=== PATIENT | male | born 1955 | race Caucasian/White ===

== ENCOUNTER → 2017-07-01 | Outpatient (CLI) | payer OTHER | LOC: GIMAGING 11:44 | PROVIDERS: ATTEND Family Medicine | DX: T84.398A Other mechanical complication of other bone devices, implants and grafts, initial encounter (principal); Z98.1 Arthrodesis status | CPT/HCPCS: 72100-PO ==

== ENCOUNTER 2017-07-24 16:08 | Inpatient (IN) | payer OTHER ==
--- NOTE | 2017-07-24 16:24 | EDPHY ---
H & P Time Seen by Provider: 07/24/17 16:18 HPI/ROS: CHIEF COMPLAINT: Found on the ground with a cut on his head HISTORY OF PRESENT ILLNESS: 61-year-old man was found on the ground outside his apartment with a cut on his head. Brought in by EMS and gets for getting the year. He complains only of a cut on the right side of his face just above his eyebrow. He says he lost his balance and fell down. Denies syncope or loss of consciousness. Denies headache or neck or back pain. REVIEW OF SYSTEMS: Eye: no change in vision or double vision ENT: no sore throat Cardiac: no chest pain or syncope Pulmonary: no cough or SOB Abdomen: no vomiting, diarrhea, abdominal pain Musculoskeletal: Chronic back pain, but no neck pain or extremity pain Skin: He has scratches on both forearms from his cat named "magic" Neuro: no headache Constitutional: no fever : no urinary symptoms A comprehensive 10 point review of systems is otherwise negative aside from elements mentioned in the history of present illness. PAST MEDICAL HISTORY: Chronic back pain, alcoholism, hypertension, rotator cuff surgery Social history: Per EMS there were empty alcohol bottles in his apartment but the patient denies alcohol. General Appearance: Alert and a little bit slow to respond to questions, cooperative. Eyes: No scleral icterus. Extraocular motion intact and pupils reactive. ENT, Mouth: Normal mucous membranes. 1 cm jagged laceration with the right eyebrow. No hemotympanum. Respiratory: Normal respiratory effort, breath sounds equal, lungs are clear to auscultation. Cardiovascular: Regular rate and rhythm. Gastrointestinal: Abdomen is soft and non tender. Neurological: Alert, face symmetric, normal motor and sensory in extremities. Can't remember the year but does follow commands appropriately with a little bit of delay. Skin: Right-sided facial laceration is noted above. Healed multiple forearm scratches on right and left without evidence of cellulitis. Musculoskeletal: No extremity or spinal tenderness. Psychiatric: Not agitated. Emergency Department course/MDM: Chem 8, wound care, CT head and cervical spine. 1704: Negative head and cervical spine per Anthony. 1811: I-STAT creatinine noted at 3.3, full chemistry panel pending. EKG pending. 1833: Patient is now more tremulous and getting more confused. His labs reviewed and he is in acute renal failure. His alcohol is 46 and he appears to be clinically in acute withdrawal. IV Ativan 2 mg, admission to Step-Down Unit. Smoking Status: Heavy smoker Constitutional: Initial Vital Signs Temperature (C) 36.5 C 07/24/17 16:08 Heart Rate 117 H 07/24/17 16:08 Respiratory Rate 16 07/24/17 16:08 Blood Pressure 108/78 07/24/17 16:08 O2 Sat (%) 93 07/24/17 16:08 O2 Delivery Mode Room Air Allergies/Adverse Reactions: No Known Allergies Allergy (Verified 07/24/15 17:10) Home Medications: Medication Instructions Recorded Gabapentin [Neurontin] 600 mg PO TID 01/05/15 ARIPiprazole [Aripiprazole] 5 mg PO DAILY 07/24/17 Baclofen [Baclofen 10 mg (*)] 10 mg PO TID 07/24/17 Nortriptyline HCl [Pamelor 25 mg 25 mg PO HS 07/24/17 (*)] Paroxetine HCl 20 mg PO DAILY 07/24/17 Potassium Chloride [Klor-Con 10] 10 meq PO DAILY 07/24/17 amLODIPine BESYLATE [Amlodipine 5 mg PO DAILY 07/24/17 Besylate] lamoTRIgine [LaMICtal] 25 mg PO DAILY 07/24/17 Medical Decision Making - Diagnostics EKG Interpretation: 12-lead EKG interpreted by me; official reading is in trace master. My interpretation is sinus tachycardia rate 112 with nonspecific IVCD. Imaging Results: Imaging Impressions Cervical Spine CT 07/24/17 16:23 Impression: 1. No acute fracture or soft tissue swelling. 2. Well seated ACDF extending from C5 to C7. 3. If the patient has persistent pain or neurologic deficits, consider cervical spine MRI. Findings discussed with Emergency Department physician, Dr. Greg Pinedo on July 24, [address] 07/24/17 16:23 Impression: 1. Minimal right supraorbital scalp swelling. No hematoma or acute skull or facial fracture. 2. No acute intracranial hemorrhage or contusion. 3. Mild atrophy and white matter disease. Findings discussed with Emergency Department physician, GREG PINEDO at 2017 17:05. Procedures: Procedure: Laceration repair. Verbal consent was obtained from the patient. The 1 cm laceration on the right eyebrow was anesthetized using 0.5% bupivacaine with epinephrine. The wound was irrigated with standard emergency department protocol, draped and explored. There were no deep structures involved. No foreign body found. The wound was repaired with 6 0 Prolene, and 5 0 Vicryl. The wound repair was complex. Excellent hemostasis was obtained. Wound care instructions were discussed and the patient was warned regarding scarring. The procedure was performed by myself. Differential Diagnosis: Differential diagnosis considered for head injury including but not limited to concussion, skull fracture, intraparenchymal contusion, subarachnoid, subdural and epidural hematoma. Consult/Admit Bed Type: [place] [address] Critical Care Time: Critical care time spent by me, Dr. Pinedo, exclusively with the care of this patient was 30 minutes, exclusive of PA or CREDIT ADMINISTRATION OFFICER time and exclusive of separate procedures. The organ system at risk was neurologic and metabolic and I ordered multiple diagnostics including cranial imaging, laboratory values, IV sedation with Ativan, IV hydration to stabilize the patient and prevent worsening of the patient's condition. - Data Points Laboratory Results: Laboratory Results 07/24/17 16:45 07/24/17 16:45 07/24/17 07/24/17 07/24/17 16:45 16:45 16:45 WBC 11.39 10^3/uL H 10^3/uL (3.80-9.50) RBC 4.61 10^6/uL 10^6/uL (4.40-6.38) Hgb 15.9 g/dL g/dL (13.7-17.5) POC Hgb Hct 45.9 % % (40.0-51.0) POC Hct MCV 99.6 fL fL (81.5-99.8) MCH 34.5 pg H pg (27.9-34.1) MCHC 34.6 g/dL g/dL (32.4-36.7) RDW 13.4 % % (11.5-15.2) Plt Count 118 10^3/uL L 10^3/uL (150-400) MPV 10.8 fL fL (8.7-11.7) Neut % (Auto) Not Reported Lymph % (Auto) Not Reported [place] % (Auto) Not Reported Eos % (Auto) Not Reported Baso % (Auto) Not Reported Nucleat RBC Rel Count 0.0 % % (0.0-0.2) Absolute Neuts (auto) Not Reported Absolute Lymphs (auto) Not Reported Absolute Monos (auto) Not Reported Absolute Eos (auto) Not Reported Absolute Basos (auto) Not Reported Absolute Nucleated RBC 0.00 10^3/uL 10^3/uL (0-0.01) Immature Gran % Not Reported Seg Neutrophils % 72 % % Band Neutrophils % 6 % % Lymphocytes % 9 % % Monocytes % 11 % % Myelocytes % 2 % % Immature Gran # Not Reported Absolute Seg Neuts 8.20 10^/uL H 10^/uL (1.70-6.50) Absolute Band Neuts 0.68 10^3/uL 10^3/uL (0.00-0.70) Absolute Lymphocytes 1.03 10^3/uL 10^3/uL (1.00-3.00) Absolute Monocytes 1.25 10^3/uL H 10^3/uL (0.30-0.80) Absolute Myelocytes 0.23 10^3/mL H 10^3/mL (0.00-0.00) RBC/WBC/PLT Morphology NORMAL (NORMAL) Platelet Estimate DECREASED L (ADEQ) Smear Review By Pending POC Sodium Sodium 134 mEq/L L mEq/L (135-145) POC Potassium Potassium 3.7 mEq/L mEq/L (3.5-5.2) POC Chloride Chloride 90 mEq/L L mEq/L (97-110) Carbon Dioxide 14 mEq/l L mEq/l (22-31) Anion Gap 30 mEq/L H mEq/L (8-16) POC BUN BUN 29 mg/dL H mg/dL (7-23) Creatinine 3.2 mg/dL H mg/dL (0.7-1.3) POC Creatinine Estimated GFR 20 Glucose 117 mg/dL H mg/dL (70-100) POC Glucose Calcium 10.6 mg/dL H mg/dL (8.5-10.4) Ethyl Alcohol 46 mg/dL H mg/dL (0-10) 07/24/17 16:42 WBC RBC Hgb POC Hgb 17.0 gm/dL gm/dL (13.7-17.5) Hct POC Hct 50 % % (40-51) MCV MCH MCHC RDW Plt Count MPV Neut % (Auto) Lymph % (Auto) [place] % (Auto) Eos % (Auto) Baso % (Auto) Nucleat RBC Rel Count Absolute Neuts (auto) Absolute Lymphs (auto) Absolute Monos (auto) Absolute Eos (auto) Absolute Basos (auto) Absolute Nucleated RBC Immature Gran % Seg Neutrophils % Band Neutrophils % Lymphocytes % Monocytes % Myelocytes % Immature Gran # Absolute Seg Neuts Absolute Band Neuts Absolute Lymphocytes Absolute Monocytes Absolute Myelocytes RBC/WBC/PLT Morphology Platelet Estimate Smear Review By POC Sodium 133 mEq/L L mEq/L (135-145) Sodium POC Potassium 3.4 mEq/L mEq/L (3.3-5.0) Potassium POC Chloride 92 mEq/L L mEq/L (97-110) Chloride Carbon Dioxide Anion Gap POC BUN 31 mg/dL H mg/dL (7-23) BUN Creatinine POC Creatinine 3.3 mg/dL H mg/dL (0.7-1.3) Estimated GFR Glucose POC Glucose 118 mg/dL H mg/dL (70-100) Calcium Ethyl Alcohol Medications Given: Discontinued Medications Sodium Chloride (Ns) 1,000 mls @ 0 mls/hr IV EDNOW ONE; Wide Open PRN Reason: Protocol Stop: 07/24/17 18:36 Last Admin: 07/24/17 18:37 Dose: 1,000 mls Sodium Chloride (Ns) 1,000 mls @ 0 mls/hr IV EDNOW ONE; Wide Open PRN Reason: Protocol Stop: 07/24/17 18:36 Last Admin: 07/24/17 18:38 Dose: 1,000 mls Lorazepam (Ativan Injection) 2 mg IVP EDNOW ONE Stop: 07/24/17 18:35 Last Admin: 07/24/17 18:37 Dose: 2 mg Point of Care Test Results: 07/24/17 16:42 POC Sodium 133 L POC Potassium 3.4 POC Chloride 92 L POC BUN 31 H POC Creatinine 3.3 H POC Glucose 118 H Departure - Departure Disposition: [facility] Inpatient Acute Clinical Impression: Alcohol withdrawal delirium Facial laceration Qualifiers: Encounter type: initial encounter Qualified Code(s): S01.81XA - Laceration without foreign body of other part of head, initial encounter Acute renal failure Qualifiers: Acute renal failure type: unspecified Qualified Code(s): N17.9 - Acute kidney failure, unspecified Condition: Good
--- NOTE | 2017-07-24 17:48 | ASMTCAGE ---
Date Signed: 07/24/2017 05:47 PM Electronically Signed By:Judit Centeno RN
--- NOTE | 2017-07-24 17:59 | ASMTCMCOM ---
CM Note CM Note Notes: Patient presents to ER per EMS after being found on the sidewalk outside his apartment, intoxicated. Patient is unable to answer questions. patient has a court appointed guardian "Star Ly"; Merrill Guillaume . Serena CHANG received HIPPA information from Angelica Robles, Director [employer] to whom I have spoken with . Per Angelica"s request: ER is to fax ER report, patient's current blood alcohol level, and any discharge instructions to her upon patient's discharge. . Patient may return to his apartment once he is medically cleared for discharge or discharge to the [facility] if appropriate. I have discussed situation with Serena CHANG and Dr. Horton. Faxe cover completed for Serena to fax info to angelica as requested. Date Signed: 07/24/2017 05:59 PM Electronically Signed By:Judit Centeno RN
[2017-07-24 18:17] LABS: PLATELET COUNT 118 10^3/uL (150-400)
[2017-07-24] MEDS ORDERED: LORazepam 2 MG/ML INJ IVP ONE (18:34)
[2017-07-24] MEDS ORDERED: LORazepam 2 MG/ML INJ ONE (18:34)
[2017-07-24] MEDS ORDERED: NS 1,000 ML IV ONE ×2 (18:35)
--- NOTE | 2017-07-24 18:43 | CPEKG ---
Heart Rate: 112 RR Interval: 536 P-R Interval: 164 QRSD Interval: 114 QT Interval: 340 QTC Interval: 464 P [place]: 46 QRS [place]: -38 T Wave [place]: 39 EKG Severity - ABNORMAL ECG - EKG Impression: SINUS TACHYCARDIA EKG Impression: NONSPECIFIC IVCD WITH LAD Electronically Signed By: Esvin Espinoza 24-Jul-2017 18:43:02
[2017-07-24] MEDS: D5W LR 1,000 ML IV SCH (22:24)
--- NOTE | 2017-07-24 23:12 | PDGENHP ---
History and Physical History and Physical: CC: Reportedly found on ground outside his apartment building HISTORY: I am unable to get any history from the patient is unresponsive at this time. From Dr. Esvin Espinoza in the ER I learned that the patient was brought by ambulance to the ER today here after being found on the ground but awake outside his apartment building. He seemed disoriented was brought to the ER. Here he reportedly was found have a head laceration, did not recall a specific injury, had no other specific complaints. He reported having lost his balance. At this time there is no other available history of acute illness or symptoms , how he has been doing recently, or any review of systems. Per report in the ER the patient started getting confused tremulous and agitated and it was felt he was possibly withdrawing from alcohol. He was given a dose of 2 mg of Ativan and since then has been unresponsive. The patient was transferred to the ICU or I am meeting him. Per the nurse upon transfer to the ICU the patient was not doing well with breathing, a nasal trumpet was placed and he is doing significantly better since then with some snoring and with good oxygenation on a couple L nasal cannula oxygen ROS: Unavailable due to unresponsiveness. PAST MEDICAL HISTORY: Intermittent alcoholism and sobriety, reports per paramedics that there was alcohol bottles in his apartment History of depression, and 1 admission here for suicidal ideation Chronic back pain with history of lumbar diskectomy fusion Kidney stones 1 prior episode of acute renal insufficiency during an acute illness that resolved FAMILY MEDICAL HISTORY: Unknown to me at this time with no useful information is chart SOCIAL HISTORY: Again unknown to me at this time but apparently has apartment, as best I know has never had any children and is single Known intermittent alcoholism in sobriety No prior indication of his record of street drug use MEDICATIONS: The patients list has been reconciled by our clinical pharmacist in the EMR. The list does not include any information on the last dose taken and it is unclear to me whether the patient was actually able to state whether he is taking these medicines currently or not. The list does include Pamelor, gabapentin, Lamictal, baclofen, aripiprazole, baclofen, paroxetine, amlodipine PHYSICAL EXAMINATION: Vital Signs: No fever; his respirations have been quite slow since he got the Ativan, however otherwise stable Emotionally Impaired Teacher: Sinus rhythm Examination: General: Comatose at this point Skin: warm, dry, good color, no rash or wounds other than a small laceration above the right eyebrow which has been closed in the ER and does not show signs of infection HEENT: normal other than the laceration as above, no tongue injury noted Neck: no mass or jvd Resps: relaxed Lungs: Very diminished but clear breath sounds Heart: regular, no murmur Abdomen: soft, nondistended, +BS, no mass Upper Extremities: normal Lower Extremities: no edema, warm No Bleeding or bruising Neurologic: The patient unable to participate in examination, there is no tremor, fasciculations or other abnormal motor activity, reflexes are unremarkable, pupils round equal and reactive IV site: looks normal LABORATORY DATA: Chemistry panel with significant metabolic acidosis with high anion gap, BUN is set in the upper 20s but creatinine is at 3.3 with a baseline of 0.6 in October of 2016, electrolytes okay CBC mildly elevated white blood cell count and mildly decreased platelets no anemia I have ordered serum ketones, so a serum salicylates and Tylenol level, and a drug screen all of which are pending I ordered an ammonia which is back at 9, liver panel I have ordered is pending RADIOLOGY STUDIES: CT scan of the head shows no intracranial abnormality and I reviewed these images and agree 12 LEAD EKG: Sinus rhythm with nothing acute on my reading ASSESSMENT: -acute encephalopathy, found on ground awake, now unarousable really unresponsive after 2 mg Ativan in the ER -acute metabolic acidosis -possible alcohol withdrawal acutely, patient appears to have been drinking and does have low level of alcohol on his blood now -past history of depression and suicidal ideation -unknown current outpatient prescribed medication usage -history of alcoholism with intermittent sobriety, unknown degree of current alcohol intake -found on ground at home tonight with small scalp laceration, circumstances beyond this unknown, consider possible closed head injury and/or concussive syndrome but unremarkable CT scan had Differential diagnosis for all the above is complicated. He was felt to have alcohol withdrawal in the ER and this may be the case but he has become completely unresponsive and this is persisting after single dose of 2 mg Ativan , much more significant response to that medicine that I would expect if all of this was alcohol withdrawal. Could consider possible seizure induced by alcohol withdrawal and/or noncompliance with his medicines which do include Lamictal and gabapentin at least as reconciled, though the accuracy of the medicine reconciliation and last time of any medication taken is unknown. He could be having alcoholic ketoacidosis at this point and ketone levels are pending. There is a possibility of thiamin deficiency and related effects. Also consider possibility of closed head injury with concussion. Finally as he has a history of depression and suicidal ideation would consider possible ingestion of substances otherwise including overdose of any of his medicines or otherwise. PLANS: -inpatient adission ICU -begin thiamin therapy at this point intravenously -hydration with D5 lactated ringers -await serum ketone level -await drug screen, Tylenol and salicylate levels -for now follow CIWA scores with Ativan dosing as needed though he is unresponsive entirely at this moment -follow electrolytes closely and replace as needed -cardiac monitoring -gastric ulcer and DVT prophylaxis -probably needs mental health evaluation once he becomes responsive again -currently NPO as he will not be able to swallow any medications -fall risk precautions I have reviewed the patient's case in detail with Dr. Esvin Espinoza I have reviewed the patient's past medical records as part of this assessment, including previous hospital admission records, physician notes, laboratory data
[2017-07-24] MEDS: THIAMINE HCL 500 MG in NS 250 ML IV SCH (23:57)
[2017-07-25] MEDS: LORazepam 2 MG/ML INJ IVP PRN ×8 (02:36→22:13)
[2017-07-25] MEDS: D5W LR 1,000 ML IV SCH ×2 (04:18→13:32)
[2017-07-25] MEDS: HEPARIN 5,000 UNIT/0.5 ML SYR SC SCH ×3 (05:25→21:25)
[2017-07-25] MEDS ORDERED: PROTOCOL MAGNESIUM 1 DOSE IV PRN (06:05)
[2017-07-25] MEDS ORDERED: PROTOCOL POTASSIUM 1 DOSE MISC PRN (06:05)
[2017-07-25] MEDS ORDERED: PROTOCOL CALCIUM 1 DOSE IV PRN (06:05)
[2017-07-25] MEDS ORDERED: PROTOCOL K PHOSPHATE 1 DOSE IV PRN (06:05)
[2017-07-25] MEDS ORDERED: POTASSIUM Cl (KCl) 100 ML IV SCH ×2 (06:30→14:45)
[2017-07-25] MEDS: POTASSIUM Cl (KCl) 10 MEQ in D5W 100 ML IV SCH ×4 (07:23→09:36)
[2017-07-25] MEDS: FAMOTIDINE 20 MG/NACL 50 ML IV SCH ×2 (08:15→20:22)
[2017-07-25] MEDS: THIAMINE HCL 500 MG in NS 250 ML IV SCH (08:47)
[2017-07-25] MEDS ORDERED: CALCIUM GLUCONATE 50 ML IV ONE (09:04)
[2017-07-25] MEDS ORDERED: CALCIUM GLUCONATE 1 GM in D5W 50 ML IV ONE (09:30)
--- NOTE | 2017-07-25 11:21 | PDMN ---
Medical Necessity Medical necessity: Pt meets IP criteria per MD; est los >2 mn for eval/tx of acute encephalopathy, metabolic acidosis, small scalp laceration & possible alcohol withdrawal; pt completely unresponsive, admit to ICU for further workup/ close monitoring, IVFs, IV thiamin/electrolytes, IV Ativan/CIWA protocol, therapies & Mental Health Evaluation; r/o seizure, alcoholic ketoacidosis, thiamin deficiency; closed head injury & possible overdose/suicidal ideation; hx alcoholism, depression, suicidal ideation; per H&P & order 07/24/17
[2017-07-25] MEDS ORDERED: NS 1,000 ML IV ONE (13:19)
--- NOTE | 2017-07-25 14:48 | HOSPPROG ---
Hospitalist Progress Note Assessment/Plan: 61 yo M w likely alcoholism found down w SUNIL, AGMA, alcohol withdrawal alcohol withdrawal: on scheduled librium at rel low dose as became apneic w benzos in ED follow on CIWA wide mediastinum: pa and lat cxr SUNIL: likely prerenal improving w IVF hypokalemia: being repleted w IV AGMA; likely startvation gap closed not hypotensive alcoholic hepatitis: low discriminant function follow proph: sc heparin dispo: SDU encephalopathy: likely alcohol and withdrawal related Subjective: case d/w dr mishra. cxr either ortated wor with enlarge mediastinum (interp by me) Objective: Vital Signs Temp Pulse Resp BP Pulse Ox 36.7 C 85 11 L 135/94 H 94 07/25/17 08:00 07/25/17 14:00 07/25/17 14:00 07/25/17 14:00 07/25/17 14:00 Laboratory Results 07/25/17 12:40 07/24/17 07/25/17 07/26/17 05:59 05:59 05:59 Intake Total 3488 Output Total 0 Balance 3488 - Physical Exam Constitutional: appears nourished, other (trying to get put of bed but not really following commands) Eyes: PERRL, anicteric sclera Ears, Nose, Mouth, Throat: moist mucous membranes, hearing normal Cardiovascular: regular rate and rhythym, no murmur, rub, or gallop, No systolic murmur, No diastolic murmur Respiratory: no respiratory distress, no rales or rhonchi Gastrointestinal: normoactive bowel sounds, soft, non-tender abdomen Genitourinary: no bladder fullness, No hughes in urethra Skin: warm, other (excoriations on L hand but not R) Musculoskeletal: No full muscle strength Neurologic: No AAOx3 Psychiatric: No interacting appropriately ICD10 Worksheet Patient Problems: Problems Problem Status Onset Acute renal failure Acute Alcohol withdrawal delirium Acute Facial laceration Acute Alcoholism Acute Arthrodesis status Acute Hydronephrosis with obstructing calculus Acute Low back pain Acute Lumbosacral stenosis Acute
[2017-07-25] MEDS: POTASSIUM Cl (KCl) 10 MEQ in NS 100 ML IV SCH ×2 (15:15→16:26)
--- NOTE | 2017-07-25 15:33 | GCON ---
[f rep st] CONSULTATION PULMONARY/CRITICAL CARE CONSULTATION. DATE OF CONSULTATION: 07/25/2017 REFERRING PHYSICIAN: Stevan Riley MD REASON FOR REFERRAL: Evaluation and management of acute kidney injury and sleep apnea. HISTORY: Mr. Caballero is a 61-year-old male who was brought into the emergency department yesterday after being found on the ground but awake outside of his apartment building in [facility]. He seemed disoriented and had a head laceration. He did not recall any specific injury. The patient became confused , tremulous and agitated, and was felt that he was withdrawing from alcohol. He was given 2 mg of Ativan and became unresponsive. He started to have observed apneas, so a nasal trumpet was placed. The patient has been unable to give a prior history of sleep apnea. With treatment with the nasal trumpet, his snoring and oxygenation improved. He was placed on BiPAP over night and that was stopped this morning. The patient currently is confused. He states that he does not have much appetite. He denies pain. PAST MEDICAL HISTORY: 1. Chronic back pain. 2. Kidney stones. 3. Alcoholism. 4. Depression. ALLERGIES: None. SOCIAL HISTORY: The patient apparently lives in an apartment and has children. He has a history of alcoholism. FAMILY HISTORY: Unremarkable. REVIEW OF SYSTEMS: Unobtainable due to the patient's confusion. PHYSICAL EXAMINATION: GENERAL: The patient is somnolent but arousable, and is able to answer simple questions, but does not give a reliable history. VITAL SIGNS: Blood pressure is 135/94 with a heart rate of 85. He is afebrile. Oxygen saturations are 94% on 3 L. HEENT: Normocephalic and atraumatic. No icterus. NECK: No adenopathy, trachea is midline. CHEST: Clear to auscultation. CARDIAC: Regular rate and rhythm without murmur. ABDOMEN: Soft , nontender. Bowel sounds present. EXTREMITIES: No clubbing, cyanosis, or edema. NEURO: The patient is somnolent but arousable. He is moving all 4 extremities symmetrically. He is oriented x1. The patient has a prominent tremor that improved after a dose of Ativan. LABORATORY: A potassium is 3.8, up from 3.1. Creatinine is 1.9, down from 3.2. BUN is 31, up from 29 at admission. An AST is 126, down from 162. Beta hydroxybutyrate is 0.95. An alcohol level was 46 yesterday. Salicylates and acetaminophen were negative. Hemoglobin is 15.9 with a white blood count of 11.4. A CT scan of the head shows mild atrophy. Images reviewed. A chest x-ray shows clear lungs. The aorta is tortuous and dilated. Images reviewed. ASSESSMENT: 1. Altered mental status. This is likely due to alcohol intoxication and now withdrawal, as the patient is starting to have some tremor. He has been responding to low-dose Ativan. 2. New is acute respiratory failure. The patient had significant respiratory depression with just a small-moderate dose of Ativan. This seems out of proportion to the amount of Ativan given. It is possible that he has other concomitant medications on board. 3. Obstructive sleep apnea. This was observed by nursing staff. It seemed to be exacerbated by medications, but he certainly is at risk for having untreated sleep apnea as an outpatient given his obesity and alcohol use. 4. Acute kidney injury. This is likely due to acute dehydration, although I would have expected a more elevated BUN if this was the sole cause. His creatinine has come down with 3 L of IV fluids. He has not peed yet, but has about 400 cc in his bladder. RECOMMENDATIONS: 1. Give another bolus of IV fluids. Recheck a bladder scan and if the patient is showing significant urinary retention, a straight cath will be placed. A urine sample will be sent for urinalysis as well as urine tox screen. 2. Continue low doses of IV Ativan. I will also write for a low dose of Librium to be taken once the patient is able to take p.o. 3. Use BiPAP p.r.n. sleep apnea. /[id number]/MODL MTDD
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
[2017-07-26] MEDS: DEXMEDETOMIDINE IN 0.9 % NACL 50 ML IV SCH ×5 (00:06→23:17)
[2017-07-26] MEDS: HEPARIN 5,000 UNIT/0.5 ML SYR SC SCH ×3 (05:48→20:49)
[2017-07-26] MEDS ORDERED: MAGNESIUM SULF 2 GM/WATER 50 ML IV ONE (07:27)
[2017-07-26] MEDS ORDERED: CALCIUM GLUCONATE 50 ML IV ONE (07:27)
[2017-07-26] MEDS ORDERED: CALCIUM GLUCONATE 1 GM in D5W 50 ML IV ONE (08:00)
[2017-07-26] MEDS: POTASSIUM Cl (KCl) 100 ML IV SCH ×2 (08:08→09:16)
[2017-07-26] MEDS: FAMOTIDINE 20 MG/NACL 50 ML IV SCH (08:10)
[2017-07-26] MEDS: THIAMINE HCL 500 MG in NS 250 ML IV SCH (08:23)
[2017-07-26] MEDS: NS W/ 20 KCl/L 1,000 ML IV SCH (10:45)
[2017-07-26] MEDS ORDERED: METOPROLOL TARTRATE 25 MG TAB PO SCH (11:15)
--- NOTE | 2017-07-26 11:29 | PDINTPN ---
Rug Cleaner Progress Note Assessment/Plan: Assessment/Plan: Alcohol withdrawal: On CIWA. Will continue with thiamin, p.r.n. Ativan, Precedex if needed. Will change Librium to 10 mg p.o. three times daily scheduled. Hypertension: Blood pressure is higher today. Will add metoprolol 25 p.o. Twice daily. Tremor: Coarse, all extremities. Looks more chronic than alcohol withdrawal, will observe. Altered mental status: Improving. CT head negative. Nonfocal. Likely all secondary to alcohol withdrawal. Hypokalemia, calcemia, magnesemia: On replacement protocols. Prophylaxis: On heparin, Pepcid. Continue care in the intensive care unit today on SDU status. Hold Precedex unless absolutely needed. Follow blood pressure, electrolytes. Continue CIWA protocol. Subjective: Denies pain, shortness of breath. Confused but becoming more oriented Objective: Vital Signs Temp Pulse Resp BP Pulse Ox 36.8 C 66 24 H 138/102 H 100 07/26/17 08:00 07/26/17 10:00 07/26/17 10:00 07/26/17 10:00 07/26/17 10:00 Laboratory Results 07/26/17 04:40 07/25/17 07/26/17 07/27/17 05:59 05:59 05:59 Intake Total 3488 4798 Output Total 0 465 Balance 3488 4333 Laboratory Tests 07/26/17 07/26/17 07/26/17 04:00 04:40 04:40 Sodium 134 L Potassium 3.7 Chloride 103 Carbon Dioxide 22 D Anion Gap 9 BUN 17 Creatinine 0.9 D Estimated GFR > 60 Glucose 120 H Calcium 8.3 L Ionized Calcium 1.09 L Phosphorus 2.6 D Magnesium 1.4 L CXR: Pending Physical Exam - Physical Exam General Appearance: other (Arousable, responsive. Small laceration over R eye with some related swelling) EENT: PERRL/EOMI, other (Nasal cannula at 2 L, 100%), No scleral icterus (R), No scleral icterus (L) Neck: normal inspection (No JVD) Respiratory: lungs clear (Anteriorly), decreased breath sounds (At the bases), other (Has cough with bronchial harshness/congestion), No rhonchi Cardiac/Chest: regular rate, rhythm Abdomen: normal bowel sounds, non-tender, soft Male Genitalia: other (Using urinal) Skin: normal color, warm/dry, other (Multiple scratches on his arms from his cat ) Extremities: No pedal edema Neuro/Psych: cognition abnormalities (Remains confused. Oriented to person, somewhat to hospital when given choices.), No no motor/sensory deficits (Moves all extremities equally but has a coarse tremor involving upper and lower extremities) ICD10 Worksheet Patient Problems: Problems Problem Status Onset Hydronephrosis with obstructing calculus Acute Low back pain Acute Lumbosacral stenosis Acute Arthrodesis status Acute Alcoholism Acute Facial laceration Acute Acute renal failure Acute Alcohol withdrawal delirium Acute
[2017-07-26] MEDS: IPRATROPIUM/ALBUTEROL 3 ML DEYVIAL IH SCH ×3 (12:16→20:47)
--- NOTE | 2017-07-26 13:03 | HOSPPROG ---
Hospitalist Progress Note Assessment/Plan: 61 yo M w likely alcoholism found down w SUNIL, AGMA, alcohol withdrawal alcohol withdrawal: on scheduled librium at rel low dose as became apneic w benzos in ED follow on CIWA wide mediastinum: repeat cxr this clinical presentation not c/w aortic dissection but needs this evaluated prior to dc SUNIL: likely prerenal improving w IVF hypokalemia: being repleted w IV AGMA; likely startvation gap closed not hypotensive alcoholic hepatitis: low discriminant function follow proph: sc heparin dispo: SDU encephalopathy: likely alcohol and withdrawal related improving Subjective: case d/w dr waldron. much more alert today- able to name teams playing basket ball Objective: Vital Signs Temp Pulse Resp BP Pulse Ox 36.8 C 79 20 118/83 H 100 07/26/17 08:00 07/26/17 12:00 07/26/17 12:00 07/26/17 12:00 07/26/17 12:00 Laboratory Results 07/26/17 04:40 07/25/17 07/26/17 07/27/17 05:59 05:59 05:59 Intake Total 3488 4798 Output Total 0 465 Balance 3488 4333 - Physical Exam Constitutional: no apparent distress, appears nourished Eyes: PERRL, anicteric sclera Ears, Nose, Mouth, Throat: moist mucous membranes, hearing normal Cardiovascular: regular rate and rhythym, no murmur, rub, or gallop Respiratory: no respiratory distress, no rales or rhonchi Gastrointestinal: normoactive bowel sounds, soft, non-tender abdomen Genitourinary: no bladder fullness, No hughes in urethra Skin: warm, normal color Musculoskeletal: No full muscle strength Neurologic: No AAOx3 ICD10 Worksheet Patient Problems: Problems Problem Status Onset Acute renal failure Acute Alcohol withdrawal delirium Acute Facial laceration Acute Alcoholism Acute Arthrodesis status Acute Hydronephrosis with obstructing calculus Acute Low back pain Acute Lumbosacral stenosis Acute
[2017-07-26] MEDS ORDERED: HALOPERIDOL LACT 5 MG/ML INJ IVP PRN (14:38)
[2017-07-26] MEDS: LORazepam 2 MG/ML INJ IVP PRN ×2 (14:50→19:25)
[2017-07-26] MEDS: FAMOTIDINE 20 MG TAB PO SCH (19:25)
[2017-07-26] MEDS ORDERED: POTASSIUM Cl (KCl) 100 ML IV SCH (19:30)
[2017-07-26] MEDS: POTASSIUM Cl (KCl) 10 MEQ in NS 100 ML IV SCH ×2 (20:19→20:52)
[2017-07-27] MEDS: LORazepam 2 MG/ML INJ IVP PRN ×9 (02:43→23:20)
[2017-07-27] MEDS: DEXMEDETOMIDINE IN 0.9 % NACL 50 ML IV SCH ×4 (03:42→22:25)
[2017-07-27] MEDS: NS W/ 20 KCl/L 1,000 ML IV SCH (03:42)
[2017-07-27] MEDS: HEPARIN 5,000 UNIT/0.5 ML SYR SC SCH ×3 (05:14→20:30)
[2017-07-27] MEDS: IPRATROPIUM/ALBUTEROL 3 ML DEYVIAL IH SCH ×2 (05:30→11:24)
[2017-07-27 05:37] LABS: PLATELET COUNT 83 10^3/uL (150-400)
[2017-07-27] MEDS: METOPROLOL TARTRATE 5 MG/5 ML INJ IVP PRN (06:23)
[2017-07-27] MEDS ORDERED: MAGNESIUM SULF 1 GM/DEXTROSE 100 ML IV ONE (08:21)
[2017-07-27] MEDS: THIAMINE HCL 100 MG TAB PO SCH (08:22)
[2017-07-27] MEDS: FAMOTIDINE 20 MG TAB PO SCH (08:22)
[2017-07-27] MEDS ORDERED: chlordiazePOXIDE 25 MG CAP PO ONE (11:42)
--- NOTE | 2017-07-27 11:42 | PDINTPN ---
Roll Builder Progress Note Assessment/Plan: Assessment: Alcohol withdrawal: On CIWA. Will continue with thiamin, p.r.n. Ativan; Precedex if needed. Will change Librium to 25 mg p.o. three times daily scheduled. Hypertension: Blood pressure is higher today. Will add metoprolol 25 p.o. Twice daily. Tremor: Coarse, all extremities. Looks more chronic than alcohol withdrawal, will observe. Altered mental status: Improving. CT head negative. Nonfocal. Likely all secondary to alcohol withdrawal. Hypokalemia, calcemia, magnesemia: On replacement protocols. Prophylaxis: On heparin, Pepcid. Plan: Continue care in the intensive care unit today on SDU status. Increase Librium. Hold Precedex unless absolutely needed. Follow blood pressure, electrolytes. Continue CIWA protocol. 07/27/17 11:39 Subjective: Somnolent but arousable. Agitated yesterday/striking nurse. Hungry. Objective: Vital Signs Temp Pulse Resp BP Pulse Ox 36.8 C 71 16 172/111 H 98 07/27/17 08:00 07/27/17 11:28 07/27/17 11:28 07/27/17 10:00 07/27/17 11:28 Laboratory Results 07/27/17 05:30 07/27/17 05:30 07/26/17 07/27/17 07/28/17 05:59 05:59 05:59 Intake Total 4798 3220.2 Output Total 465 1650 450 Balance 4333 1570.2 -450 Physical Exam - Physical Exam General Appearance: No alert EENT: normal ENT inspection, other (sutured laceration right forehead.) Neck: normal inspection Respiratory: chest non-tender, lungs clear, normal breath sounds Abdomen: normal bowel sounds, non-tender Skin: normal color, warm/dry Extremities: normal inspection Neuro/Psych: No alert, No oriented x 3, No motor weakness ICD10 Worksheet Patient Problems: Problems Problem Status Onset Acute renal failure Acute Alcohol withdrawal delirium Acute Facial laceration Acute Alcoholism Acute Arthrodesis status Acute Hydronephrosis with obstructing calculus Acute Low back pain Acute Lumbosacral stenosis Acute
--- NOTE | 2017-07-27 12:56 | HOSPPROG ---
Hospitalist Progress Note Assessment/Plan: 61 yo M w likely alcoholism found down w SUNIL, AGMA, alcohol withdrawal alcohol withdrawal: increase librium to 25 tid minimize precedex use prn valium and haldol wide mediastinum: repeat cxr this clinical presentation not c/w aortic dissection but needs this evaluated prior to dc 2014 had 4.[address] REPEAT ct IN am given above, will treat htn start lisinopril SUNIL: likely prerenal improving w IVF hypokalemia: being repleted w IV AGMA; likely startvation gap closed not hypotensive alcoholic hepatitis: low discriminant function follow proph: sc heparin dispo: SDU encephalopathy: likely alcohol and withdrawal related improving Subjective: case d/w dr mishra. agitated and hypertensive overnight requiring precedex Objective: Vital Signs Temp Pulse Resp BP Pulse Ox 36.6 C 70 33 H 183/122 H 97 07/27/17 12:00 07/27/17 12:00 07/27/17 12:00 07/27/17 12:00 07/27/17 12:00 Laboratory Results 07/27/17 05:30 07/27/17 12:00 07/26/17 07/27/17 07/28/17 05:59 05:59 05:59 Intake Total 4798 3220.2 Output Total 465 1650 450 Balance 4333 1570.2 -450 - Physical Exam Constitutional: no apparent distress, other Eyes: PERRL, anicteric sclera Ears, Nose, Mouth, Throat: moist mucous membranes, hearing normal Cardiovascular: regular rate and rhythym, no murmur, rub, or gallop (confused) Respiratory: no respiratory distress, no rales or rhonchi Gastrointestinal: normoactive bowel sounds, soft, non-tender abdomen Genitourinary: no bladder fullness, No hughes in urethra Skin: warm, normal color Musculoskeletal: no muscle tenderness, No full muscle strength Neurologic: No AAOx3 ICD10 Worksheet Patient Problems: Problems Problem Status Onset Acute renal failure Acute Alcohol withdrawal delirium Acute Facial laceration Acute Alcoholism Acute Arthrodesis status Acute Hydronephrosis with obstructing calculus Acute Low back pain Acute Lumbosacral stenosis Acute
[2017-07-27] MEDS: LORazepam 1 MG TAB PO PRN (13:05)
[2017-07-27] MEDS: LISINOPRIL 5 MG TAB PO SCH (13:12)
[2017-07-27] MEDS ORDERED: IPRATROPIUM/ALBUTEROL 3 ML DEYVIAL IH PRN (14:29)
[2017-07-27] MEDS: chlordiazePOXIDE 25 MG CAP PO SCH ×2 (17:21→20:31)
[2017-07-27] MEDS: NS 1,000 ML IV SCH (17:21)
[2017-07-27] MEDS: MELATONIN 3 MG TAB PO SCH (20:30)
[2017-07-28] MEDS: POTASSIUM Cl (KCl) 10 MEQ in NS 100 ML IV SCH ×4 (01:48→16:25)
[2017-07-28] MEDS: DEXMEDETOMIDINE IN 0.9 % NACL 50 ML IV SCH ×4 (01:48→23:59)
[2017-07-28] MEDS: LORazepam 2 MG/ML INJ IVP PRN ×2 (03:29→23:56)
[2017-07-28] MEDS: HEPARIN 5,000 UNIT/0.5 ML SYR SC SCH (06:24)
[2017-07-28] MEDS: LISINOPRIL 5 MG TAB PO SCH (09:59)
[2017-07-28] MEDS: THIAMINE HCL 100 MG TAB PO SCH (10:00)
[2017-07-28] MEDS: chlordiazePOXIDE 25 MG CAP PO SCH ×3 (10:00→20:20)
--- NOTE | 2017-07-28 10:06 | HOSPPROG ---
Hospitalist Progress Note Assessment/Plan: 61 yo M w likely alcoholism found down w SUNIL, AGMA, alcohol withdrawal alcohol withdrawal: increase librium to 25 tid minimize precedex use prn valium and haldol wide mediastinum: repeat cxr this clinical presentation not c/w aortic dissection but needs this evaluated prior to dc 2014 had 4.[address] today given above, will treat htn start lisinopril SUNIL: likely prerenal improving w IVF hypokalemia: being repleted w IV AGMA; likely startvation gap closed not hypotensive alcoholic hepatitis: low discriminant function follow proph: sc heparin dispo: SDU encephalopathy: likely alcohol and withdrawal related improving Subjective: agitated and violent overnight; precedex restarted. case d/w dr goss. discussed w outpt hospice case manager Objective: Vital Signs Temp Pulse Resp BP Pulse Ox 36.2 C 60 18 160/106 H 96 07/28/17 09:00 07/28/17 09:00 07/28/17 09:00 07/28/17 09:59 07/28/17 09:00 Laboratory Results 07/27/17 05:30 07/28/17 06:30 07/27/17 07/28/17 07/29/17 05:59 05:59 05:59 Intake Total 3220.2 2500 Output Total 1650 3550 775 Balance 1570.2 -1050 -775 - Physical Exam Constitutional: appears nourished, other (confused) Eyes: PERRL, anicteric sclera Ears, Nose, Mouth, Throat: moist mucous membranes, hearing normal Cardiovascular: regular rate and rhythym, no murmur, rub, or gallop Respiratory: no respiratory distress, no rales or rhonchi Gastrointestinal: normoactive bowel sounds, soft, non-tender abdomen Genitourinary: no bladder fullness, No hughes in urethra Skin: warm, normal color Musculoskeletal: full muscle strength Neurologic: other (encephalopathic, perseverative, oicking at blankets), No AAOx3 ICD10 Worksheet Patient Problems: Problems Problem Status Onset Acute renal failure Acute Alcohol withdrawal delirium Acute Facial laceration Acute Alcoholism Acute Arthrodesis status Acute Hydronephrosis with obstructing calculus Acute Low back pain Acute Lumbosacral stenosis Acute
[2017-07-28] MEDS: METOPROLOL TARTRATE 5 MG/5 ML INJ IVP PRN (10:50)
[2017-07-28] MEDS: NS 1,000 ML IV SCH (10:54)
[2017-07-28] MEDS ORDERED: CALCIUM GLUCONATE 50 ML IV ONE (11:12)
[2017-07-28] MEDS ORDERED: MAGNESIUM SULF 1 GM/DEXTROSE 100 ML IV ONE (11:12)
[2017-07-28] MEDS ORDERED: POTASSIUM Cl (KCl) 100 ML IV SCH (11:12)
[2017-07-28] MEDS ORDERED: CALCIUM GLUCONATE 1 GM in D5W 50 ML IV ONE (11:30)
[2017-07-28] MEDS ORDERED: NS IV ONE (12:00)
[2017-07-28] MEDS ORDERED: K PHOS IV ONE (12:00)
[2017-07-28] MEDS ORDERED: IOPAMIDOL (ISOVUE 370) 100 ML BTL IV ONE (12:58)
[2017-07-28] MEDS: ENOXAPARIN 40 MG/0.4 ML SYR SC SCH (13:27)
[2017-07-28] MEDS ORDERED: LISINOPRIL 5 MG TAB PO ONE (13:48)
--- NOTE | 2017-07-28 15:10 | ASMTCMCOM ---
CM Note CM Note Notes: Spoke to Angelica, patient's Stamping Machine Operator, who would like patient to go to a secured memory care unit. PT recommending SNF at this time. This CM will begin the referral and PASRR process. Date Signed: 07/28/2017 03:10 PM Electronically Signed By:Kacy Chen LCSW
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
--- NOTE | 2017-07-28 16:56 | ASMTCMCOM ---
CM Note CM Note Notes: PASRR sent to Coordinator. Referrals sent to 26 SNF's with Secured Units. Date Signed: 07/28/2017 04:56 PM Electronically Signed By:Kacy Chen LCSW
[2017-07-28] MEDS: LISINOPRIL 10 MG TAB PO SCH (20:20)
[2017-07-28] MEDS: MELATONIN 3 MG TAB PO SCH (20:21)
[2017-07-29] MEDS: DEXMEDETOMIDINE IN 0.9 % NACL 50 ML IV SCH (05:39)
[2017-07-29] MEDS ORDERED: CALCIUM GLUCONATE 50 ML IV ONE (06:49)
[2017-07-29] MEDS ORDERED: MAGNESIUM SULF 1 GM/DEXTROSE 100 ML IV ONE (06:49)
[2017-07-29] MEDS ORDERED: CALCIUM GLUCONATE 1 GM in D5W 50 ML IV ONE (07:00)
[2017-07-29] MEDS: LISINOPRIL 10 MG TAB PO SCH ×2 (08:15→19:58)
[2017-07-29] MEDS: THIAMINE HCL 100 MG TAB PO SCH (08:15)
[2017-07-29] MEDS: chlordiazePOXIDE 25 MG CAP PO SCH (08:15)
[2017-07-29] MEDS: ENOXAPARIN 40 MG/0.4 ML SYR SC SCH (08:16)
[2017-07-29 09:46] LABS: PLATELET COUNT 140 10^3/uL (150-400)
[2017-07-29] MEDS ORDERED: NS IV ONE (12:00)
[2017-07-29] MEDS ORDERED: K PHOS IV ONE (12:00)
[2017-07-29] MEDS: LORazepam 2 MG/ML INJ IVP PRN ×2 (12:28→13:23)
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
--- NOTE | 2017-07-29 14:14 | HOSPPROG ---
Hospitalist Progress Note Assessment/Plan: # acute encephalopathy - d/t etOH w/d - better today # etOH withdrawal - stop sched librium, cont CIWA # ascending thoracic aneurysm - 4.6cm; no evidence of dissection - needs follow-up - control htn - agree with lisinopril but needs monitoring given his SUNIL # mediastinal lipomatosis - accounts for most of mediastinal widening # SUNIL - resolved, pre-renal # AGMA - starvation ketosis # mild hepatitis - d/t etOH; low DF # hypoK - resolved # dvt ppx - lovenox Subjective: no acute events; complains of neck pain Objective: Vital Signs Temp Pulse Resp BP Pulse Ox 36.9 C 130 H 20 162/129 H 93 07/29/17 12:00 07/29/17 12:27 07/29/17 12:00 07/29/17 12:27 07/29/17 12:00 Laboratory Results 07/29/17 09:40 07/29/17 10:28 07/28/17 07/29/17 07/30/17 05:59 05:59 05:59 Intake Total 2500 3805 120 Output Total 3550 4475 Balance -1050 -670 120 chart reviewed CTA reviewed - Physical Exam Constitutional: chronically ill appearing, unkempt Cardiovascular: regular rate and rhythym, no murmur, rub, or gallop Respiratory: no respiratory distress, no rales or rhonchi Gastrointestinal: normoactive bowel sounds, soft, non-tender abdomen, no palpable masses ICD10 Worksheet Patient Problems: Problems Problem Status Onset Hydronephrosis with obstructing calculus Acute Low back pain Acute Lumbosacral stenosis Acute Arthrodesis status Acute Alcoholism Acute Facial laceration Acute Acute renal failure Acute Alcohol withdrawal delirium Acute
[2017-07-29] MEDS: NICOTINE 21 MG/24 HR PATCH TD SCH (14:23)
[2017-07-29] MEDS: LIDOCAINE 4%/MENTHOL 1% PATCH TD SCH ×2 (14:23→14:37)
--- NOTE | 2017-07-29 16:58 | ASMTCMCOM ---
CM Note CM Note Notes: Patient's Wardrobe Mistress, Catherine Bush, needed a letter for the courts. Dr. Barroso signed a letter. Catherine reports that the patient has a cat that he is concerned about. Right now the neighbor is caring for the cat. CM to follow up with SNF referrals listed. Date Signed: 07/29/2017 04:57 PM Electronically Signed By:Kacy Chen LCSW
[2017-07-29] MEDS: MELATONIN 3 MG TAB PO SCH (19:59)
[2017-07-29] MEDS: LORazepam 1 MG TAB PO PRN (19:59)
[2017-07-30] MEDS: PATCH REMOVAL 1 EA PATCH TD SCH ×2 (00:17→20:34)
[2017-07-30] MEDS: LORazepam 1 MG TAB PO PRN ×2 (00:58→08:12)
[2017-07-30 05:17] LABS: PLATELET COUNT 158 10^3/uL (150-400)
[2017-07-30] MEDS: LIDOCAINE 4%/MENTHOL 1% PATCH TD SCH (08:10)
[2017-07-30] MEDS: ENOXAPARIN 40 MG/0.4 ML SYR SC SCH (08:11)
[2017-07-30] MEDS: NICOTINE 21 MG/24 HR PATCH TD SCH (08:11)
[2017-07-30] MEDS: THIAMINE HCL 100 MG TAB PO SCH (08:12)
[2017-07-30] MEDS: LISINOPRIL 10 MG TAB PO SCH (08:12)
--- NOTE | 2017-07-30 09:38 | HOSPPROG ---
Hospitalist Progress Note Assessment/Plan: # acute encephalopathy - d/t etOH w/d - continues to improve # etOH withdrawal - improved, still in mild withdrawal - cont CIWA, thiamine # ascending thoracic aneurysm - 4.6cm (increased from 4.2cm in 2015); no evidence of dissection - will d/w CT surgery regarding ongoing surveillance - control htn - change lisinopril to labetalol today # mediastinal lipomatosis - accounts for most of mediastinal widening # SUNIL - resolved, pre-renal # AGMA - starvation ketosis # mild hepatitis - d/t etOH; resolved # hypoK - resolved # dvt ppx - lovenox Subjective: more mentally clear today; asking appropriate questions about aneurysm Objective: Vital Signs Temp Pulse Resp BP Pulse Ox 37.4 C 99 20 102/65 96 07/30/17 04:00 07/30/17 08:00 07/30/17 08:00 07/30/17 08:00 07/30/17 08:00 Laboratory Results 07/30/17 04:55 07/30/17 04:55 07/29/17 07/30/17 07/31/17 05:59 05:59 05:59 Intake Total 3805 2070 Output Total 4475 1250 Balance -[address] reviewed - Physical Exam Constitutional: unkempt Cardiovascular: regular rate and rhythym, no murmur, rub, or gallop Respiratory: no respiratory distress, no rales or rhonchi Gastrointestinal: soft, non-tender abdomen, no palpable masses ICD10 Worksheet Patient Problems: Problems Problem Status Onset Hydronephrosis with obstructing calculus Acute Low back pain Acute Lumbosacral stenosis Acute Arthrodesis status Acute Alcoholism Acute Facial laceration Acute Acute renal failure Acute Alcohol withdrawal delirium Acute
[2017-07-30] MEDS ORDERED: FLU VACC QS 2017-18 (3YR+)/PF 0.5 ML SYR (FLUARIX QUAD) IM ONE (12:21)
[2017-07-30] MEDS ORDERED: PNEUMOCOCCAL 0.5ML VACCINE VIAL IM ONE (12:21)
--- NOTE | 2017-07-30 13:25 | ASMTCMCOM ---
CM Note CM Note Notes: Spoke with Valarie Slater, Tool Mechanic for patient through [employer] ([phone]) program. She would like for us to email her the list of all the facilities turning the patient down ( since it is at 20 or so now) so we don't duplicate work. ([email or web address]). She will help with locating placement for the patient who is going to be difficult to place. [facility] to say if patient does not have a diagnosis of dementia they cannot take him for their locked unit. They need to know if he has a formal diagnosis of dementia, if his guardian is temporary or permanent, who signs for payment. They might be able to consider him once these questions are answered. Lorrie, [employer] [phone] is the contact. Patient is being transferred to the floor. CM will need to follow up there. Date Signed: 07/30/2017 01:25 PM Electronically Signed By:Linette Awan LCSW
--- NOTE | 2017-07-30 15:21 | ECHO ---
[email or web address] [address] Main: [phone] Fax: Transthoracic Echocardiogram Name: RODRICK WREN MR#: [id number] Study Date: 07/30/2017 Study Time: 11:54 AM Date of : 1955 Age: 61 year(s) Height: 175.3 cm (69 in.) Weight: 84.82 kg (187 lb.) BSA: 2.01 m2 Gender: Male Examination: Echo Indication: Ascending Aortic Aneurysm Image Quality: Technically Difficult Contrast: Requested by: Georgi Barroso BP: 111 mmHg/82 mmHg Heart Rate: Rhythm: Indication: Ascending Aortic Aneurysm Procedure Staff Journalism Intern: Felicia Kirkpatrick RDCS Reading Physician: Jasmyne Quezada Requesting Provider: Conclusions: Normal size left ventricle. No LV hypertrophy. Normal global systolic LV function. The ejection fraction is visually estimated to be 70 %. No regional wall motion abnormality. Normal RV function. Mildly dilated ascending aorta measuring 4.4 cm. Compared with 07/22/2014 overall similar findings Measurements: Chambers Valvular Assessment AV/MV Valvular Assessment TV/PV Normal Normal Normal Name Value Range Name Value Range Name Value Range Ao Gracie (2D): 3.5 cm (1.4 cm-2.6 AV meanP mmHg ( - ) cm) MV E Vmax: 0.72 m/s ( - ) IVSd (2D): 0.6 cm (0.6 cm-1.1 MV A Vmax: 1.09 m/s ( - ) cm) MV E/A: 0.66 ( - ) LVDd (2D): 4.2 cm (4.2 cm-5.9 cm) LVDs (2D): 2.1 cm (2.1 cm-4 cm) LVPWd (2D): 0.7 cm (0.6 cm-1 cm) LVEF (2D): 83 (>=54 %) Visual EF: 70 % Continued Measurements: Chambers Valvular Assessment AV/MV Name Value Name Value Patient: RODRICK WREN Study Date: 07/30/2017 Page 1 of 2 11:54 AM LADs: 2.2 cm MV E' Septal: 0.07 m/s MV E/E' Septal: 10.80 MV E/E' Lateral: 15.30 Additional Vessels Name Value Ao Ascendin.4 cm Findings: Left Ventricle: Normal size left ventricle. No LV hypertrophy. Normal global systolic LV function. The ejection fraction is visually estimated to be 70 %. No regional wall motion abnormality. Right Ventricle: Normal size right ventricle. Normal RV function. Left Atrium: The left atrium is normal in size. Right Atrium: The right atrium is normal in size. Mitral Valve: The mitral valve is normal in appearance and function. Aortic Valve: The aortic valve is normal in appearance and function. Tricuspid Valve: The tricuspid valve appears normal. Pulmonic Valve: Pulmonary valve not well visualized. Aorta: The aorta is normal. Mildly dilated ascending aorta measuring 4.4 cm. Pericardium: No pericardial effusion. There is pericardial fat. (No Signature Object) Patient: RODRICK WREN Study Date: 07/30/2017 Page 2 of 2 11:54 AM [id number]
[2017-07-30] MEDS: LORazepam 2 MG/ML INJ IVP PRN (15:24)
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
[2017-07-30] MEDS: ACETAMINOPHEN 500 MG TAB PO PRN (19:38)
[2017-07-30] MEDS ORDERED: ACETAMINOPHEN 500 MG TAB ONE (19:45)
[2017-07-30] MEDS: LABETALOL HCL 100 MG TAB PO SCH (20:32)
[2017-07-30] MEDS: MELATONIN 3 MG TAB PO SCH (20:32)
[2017-07-31] MEDS ORDERED: MAGNESIUM SULF 1 GM/DEXTROSE 100 ML IV ONE (07:25)
[2017-07-31] MEDS: ENOXAPARIN 40 MG/0.4 ML SYR SC SCH (08:15)
[2017-07-31] MEDS: ACETAMINOPHEN 500 MG TAB PO PRN (08:16)
[2017-07-31] MEDS: LABETALOL HCL 100 MG TAB PO SCH ×2 (08:16→22:01)
[2017-07-31] MEDS: THIAMINE HCL 100 MG TAB PO SCH (08:17)
[2017-07-31] MEDS: LORazepam 1 MG TAB PO PRN ×3 (08:17→17:51)
[2017-07-31] MEDS: NICOTINE 21 MG/24 HR PATCH TD SCH (08:18)
[2017-07-31] MEDS: LIDOCAINE 4%/MENTHOL 1% PATCH TD SCH (08:19)
[2017-07-31] MEDS ORDERED: CALCIUM CARBONATE 500 MG CHEWABLE TAB PO PRN (14:18)
[2017-07-31] MEDS: ARIPiprazole 5 MG TAB PO SCH (14:45)
--- NOTE | 2017-07-31 14:54 | HOSPPROG ---
Hospitalist Progress Note Assessment/Plan: # acute encephalopathy - d/t etOH w/d; now suspecting a more chronic component # etOH withdrawal - improved, should be resolving - cont CIWA, thiamine # ascending thoracic aneurysm - 4.6cm (increased from 4.2cm in 2015); no evidence of dissection - discussed with Dr De La Torre - he will see as an outpatient for ongoing surveillance - control htn - change lisinopril to labetalol today - echo reviewed - AV normal # depr - restarted prozac and abilify today # mediastinal lipomatosis - accounts for most of mediastinal widening # SUNIL - resolved, pre-renal # AGMA - starvation ketosis # mild hepatitis - d/t etOH; resolved # hypoK - resolved # forehead laceration - remove sutures in 1 week # dvt ppx - lovenox Objective: Vital Signs Temp Pulse Resp BP Pulse Ox 36.9 C 85 16 123/90 H 91 L 07/31/17 07:32 07/31/17 07:32 07/31/17 07:32 07/31/17 07:32 07/31/17 07:32 Laboratory Results 07/30/17 04:55 07/30/17 04:55 07/30/17 07/31/17 08/01/17 05:59 05:59 05:59 Intake Total 2070 400 Output Total 1250 375 Balance 820 25 ICD10 Worksheet Patient Problems: Problems Problem Status Onset Hydronephrosis with obstructing calculus Acute Low back pain Acute Lumbosacral stenosis Acute Arthrodesis status Acute Alcoholism Acute Facial laceration Acute Acute renal failure Acute Alcohol withdrawal delirium Acute
[2017-07-31] MEDS ORDERED: NON-FORMULARY NEW DRUG (Gabapentin [Neurontin] 600 MG) PO SCH (16:00)
[2017-07-31] MEDS: BACLOFEN 10 MG TAB PO SCH ×2 (16:16→22:00)
[2017-07-31] MEDS: GABAPENTIN 300 MG CAP PO SCH ×2 (16:17→22:00)
--- NOTE | 2017-07-31 17:22 | ASMTCMCOM ---
CM Note CM Note Notes: Today Ronnie worked with outpatient Water Purifier Angelica Travis to work on Pt's case and plan for discharge. Angelica states that technical administrative assistant and Care Navigators went to Court to petition for full guardianship today. Await decision. Recent paperwork declaring the Court order for placement of Pt. is in the hard chart. Pt. to be put on M1 Hold if tries to leave. host and hostess agrees and is aware. Pt. did become agitated today and host and hostess moved his bed closer to nurses station. Angelica also sent outpatient medical records to Ronnie today denoting Pt's hx. of alcohol related dementia. Fax-attached to [employer] and sent to [facility] who may have a bed soon per Angelica. Ronnie also contacted MD today because Pt. is not on all of his outpatient meds to include Abilify. Angelica warned that Pt. would grow increasingly agitated without the Abilify. Ronnie worked with MD and pharmacy to fix this situation. Pt. now on outpatient meds including Abilify. Completed PASRR from OB is in hard chart. SW to follow for d/c POC. Date Signed: 07/31/2017 05:21 PM Electronically Signed By:Marjan Freitas LCSW
[2017-07-31] MEDS: NICOTINE POLACRILEX 2 MG GUM B PRN (17:24)
[2017-07-31] MEDS: PATCH REMOVAL 1 EA PATCH TD SCH (20:32)
[2017-07-31] MEDS: NORTRIPTYLINE HCL 25 MG CAP PO SCH (22:00)
[2017-07-31] MEDS: MELATONIN 3 MG TAB PO SCH (22:00)
[2017-08-01] MEDS ORDERED: NON-FORMULARY NEW DRUG (Potassium Chloride [Klor-Con 10] 10 MEQ) PO SCH (09:00)
[2017-08-01] MEDS ORDERED: MAGNESIUM SULF 1 GM/DEXTROSE 100 ML IV ONE (09:01)
[2017-08-01] MEDS: ENOXAPARIN 40 MG/0.4 ML SYR SC SCH (09:16)
[2017-08-01] MEDS: GABAPENTIN 300 MG CAP PO SCH ×3 (09:17→21:02)
[2017-08-01] MEDS: NICOTINE 21 MG/24 HR PATCH TD SCH (09:17)
[2017-08-01] MEDS: lamoTRIgine 25 MG TAB PO SCH (09:17)
[2017-08-01] MEDS: LABETALOL HCL 100 MG TAB PO SCH ×2 (09:17→20:58)
[2017-08-01] MEDS: POTASSIUM CL 10 MEQ TAB PO SCH (09:17)
[2017-08-01] MEDS: ARIPiprazole 5 MG TAB PO SCH (09:17)
[2017-08-01] MEDS: BACLOFEN 10 MG TAB PO SCH ×3 (09:19→21:02)
[2017-08-01] MEDS: THIAMINE HCL 100 MG TAB PO SCH (09:19)
[2017-08-01] MEDS: PARoxetine HCL 20 MG TAB PO SCH (09:19)
[2017-08-01] MEDS: LIDOCAINE 4%/MENTHOL 1% PATCH TD SCH (09:19)
--- NOTE | 2017-08-01 14:48 | HOSPPROG ---
Hospitalist Progress Note Assessment/Plan: # acute encephalopathy - d/t etOH w/d - i suspect he is at baseline currently # etOH withdrawal - he is still tremulous but this may be chronic - stop ciwa today - thiamine # ascending thoracic aneurysm - 4.6cm (increased from 4.2cm in 2015); no evidence of dissection - discussed with Dr De La Torre - he will see as an outpatient for ongoing surveillance - control htn - cont labetalol - echo reviewed - AV normal # depr - restarted prozac and abilify today # mediastinal lipomatosis - accounts for most of mediastinal widening # SUNIL - resolved, pre-renal # AGMA - starvation ketosis # mild hepatitis - d/t etOH; resolved # hypoK - resolved # forehead laceration - remove sutures in 1 week # dvt ppx - lovenox # dispo - has a court appointed guardian - looking at placement Subjective: shaving; less depressed today Objective: Vital Signs Temp Pulse Resp BP Pulse Ox 36.8 C 82 18 107/76 92 08/01/17 07:19 08/01/17 09:17 08/01/17 07:19 08/01/17 09:17 08/01/17 07:19 Laboratory Results 07/30/17 04:55 08/01/17 05:20 07/31/17 08/01/17 08/02/17 05:59 05:59 05:59 Intake Total 400 Output Total 375 475 Balance 25 -475 - Physical Exam Constitutional: chronically ill appearing Cardiovascular: regular rate and rhythym, no murmur, rub, or gallop Respiratory: no respiratory distress, no rales or rhonchi Gastrointestinal: soft, non-tender abdomen, no palpable masses ICD10 Worksheet Patient Problems: Problems Problem Status Onset Hydronephrosis with obstructing calculus Acute Low back pain Acute Lumbosacral stenosis Acute Arthrodesis status Acute Alcoholism Acute Facial laceration Acute Acute renal failure Acute Alcohol withdrawal delirium Acute
--- NOTE | 2017-08-01 15:15 | ASMTCMCOM ---
CM Note CM Note Notes: Today SWer continued to work with Angelica Robles from [employer] on Pt's guardianship issues and discharge planning. Angelica informed SWer that Court did indeed establish a temporary legal guardian for Pt. Angelica will serve in that capacity: Angelica Robles The Assistant Chief Nursing Officer [facility]f[address] [facility] [address], [place] [address] [email or web address] is preferred: Work: Please see guardianship paperwork in the front of the hard chart. Paperwork also tubed to medical records. Today SWer also sent Angelica a list of nursing homes/SNFs where [facility] has already referred Pt. Angelica plans to call to f/u for placement. SWer sent updated outpatient note to all referred SNFs indicating alcoholic dementia diagnosis and also sent completed OBRA PASRR to all SNFs today via [employer]. [facility] have a bed open on Friday. Angelica to follow. Pt's GAL (stock shipper) to visit Pt. today at [facility] - Mr. Merrill Guillaume . Notably Merrill is not the appointed Court guardian, Angelica is. Pt's behavior has been reportedly calm today per beside RN. CM to follow for d/c POC. Date Signed: 08/01/2017 03:14 PM Electronically Signed By:Marjan Freitas LCSW
[2017-08-01] MEDS: MELATONIN 3 MG TAB PO SCH (21:01)
[2017-08-01] MEDS: NORTRIPTYLINE HCL 25 MG CAP PO SCH (21:01)
[2017-08-01] MEDS: PATCH REMOVAL 1 EA PATCH TD SCH (21:02)
[2017-08-01] MEDS: ACETAMINOPHEN 500 MG TAB PO PRN (21:10)
[2017-08-02] MEDS: LABETALOL HCL 100 MG TAB PO SCH ×2 (08:40→20:58)
[2017-08-02] MEDS: GABAPENTIN 300 MG CAP PO SCH ×3 (08:41→21:00)
[2017-08-02] MEDS: PARoxetine HCL 20 MG TAB PO SCH (08:41)
[2017-08-02] MEDS: lamoTRIgine 25 MG TAB PO SCH (08:41)
[2017-08-02] MEDS: THIAMINE HCL 100 MG TAB PO SCH (08:41)
[2017-08-02] MEDS: POTASSIUM CL 10 MEQ TAB PO SCH (08:41)
[2017-08-02] MEDS: ARIPiprazole 5 MG TAB PO SCH (08:41)
[2017-08-02] MEDS: BACLOFEN 10 MG TAB PO SCH ×3 (08:41→21:00)
[2017-08-02] MEDS: NICOTINE 21 MG/24 HR PATCH TD SCH (08:44)
[2017-08-02] MEDS: LIDOCAINE 4%/MENTHOL 1% PATCH TD SCH (08:47)
[2017-08-02] MEDS: ENOXAPARIN 40 MG/0.4 ML SYR SC SCH (08:51)
--- NOTE | 2017-08-02 11:47 | HOSPPROG ---
Hospitalist Progress Note Assessment/Plan: # acute encephalopathy - d/t etOH w/d - i suspect he is at baseline currently # etOH withdrawal - CIWA stopped - thiamine # ascending thoracic aneurysm - 4.6cm (increased from 4.2cm in 2015); no evidence of dissection - discussed with Dr De La Torre - he will see as an outpatient for ongoing surveillance - control htn - cont labetalol - may need to increase tomorrow - echo reviewed - AV normal # depr - restarted prozac and abilify # mediastinal lipomatosis - accounts for most of mediastinal widening # SUNIL - resolved, pre-renal # AGMA - starvation ketosis # mild hepatitis - d/t etOH; resolved # hypoK - resolved # forehead laceration - remove sutures tomorrow # dvt ppx - lovenox # dispo - has a court appointed guardian - looking at placement Subjective: feels better after shaving yesterday Objective: Vital Signs Temp Pulse Resp BP Pulse Ox 36.4 C 84 16 147/92 H 91 L 08/02/17 07:43 08/02/17 08:40 08/02/17 07:43 08/02/17 08:40 08/02/17 07:43 Laboratory Results 07/30/17 04:55 08/01/17 05:20 08/01/17 08/02/17 08/03/17 05:59 05:59 05:59 Intake Total 750 Output Total 975 Balance -225 - Physical Exam Constitutional: no apparent distress Cardiovascular: regular rate and rhythym, no murmur, rub, or gallop Respiratory: no respiratory distress, no rales or rhonchi Gastrointestinal: soft, non-tender abdomen, no palpable masses ICD10 Worksheet Patient Problems: Problems Problem Status Onset Hydronephrosis with obstructing calculus Acute Low back pain Acute Lumbosacral stenosis Acute Arthrodesis status Acute Alcoholism Acute Facial laceration Acute Acute renal failure Acute Alcohol withdrawal delirium Acute
[2017-08-02] MEDS: NICOTINE POLACRILEX 2 MG GUM B PRN (18:41)
[2017-08-02] MEDS: NORTRIPTYLINE HCL 25 MG CAP PO SCH (20:58)
[2017-08-02] MEDS: MELATONIN 3 MG TAB PO SCH (20:59)
[2017-08-02] MEDS: PATCH REMOVAL 1 EA PATCH TD SCH (22:49)
[2017-08-03] MEDS: ACETAMINOPHEN 500 MG TAB PO PRN (03:45)
[2017-08-03] MEDS: NICOTINE POLACRILEX 2 MG GUM B PRN ×2 (05:26→16:49)
[2017-08-03] MEDS: ENOXAPARIN 40 MG/0.4 ML SYR SC SCH (08:34)
[2017-08-03] MEDS: GABAPENTIN 300 MG CAP PO SCH ×3 (08:35→21:30)
[2017-08-03] MEDS: LABETALOL HCL 100 MG TAB PO SCH ×2 (08:35→21:26)
[2017-08-03] MEDS: ARIPiprazole 5 MG TAB PO SCH (08:35)
[2017-08-03] MEDS: THIAMINE HCL 100 MG TAB PO SCH (08:36)
[2017-08-03] MEDS: lamoTRIgine 25 MG TAB PO SCH (08:36)
[2017-08-03] MEDS: BACLOFEN 10 MG TAB PO SCH ×3 (08:36→21:30)
[2017-08-03] MEDS: POTASSIUM CL 10 MEQ TAB PO SCH (08:36)
[2017-08-03] MEDS: PARoxetine HCL 20 MG TAB PO SCH (08:36)
[2017-08-03] MEDS: LIDOCAINE 4%/MENTHOL 1% PATCH TD SCH (08:38)
[2017-08-03] MEDS: NICOTINE 21 MG/24 HR PATCH TD SCH (08:38)
[2017-08-03] MEDS ORDERED: MAGNESIUM SULF 1 GM/DEXTROSE 100 ML IV ONE (08:57)
--- NOTE | 2017-08-03 12:45 | HOSPPROG ---
Hospitalist Progress Note Assessment/Plan: # acute encephalopathy - d/t etOH w/d - not withdrawing anymore - i suspect he is at baseline currently # etOH withdrawal - CIWA stopped - thiamine # ascending thoracic aneurysm - 4.6cm (increased from 4.2cm in 2015); no evidence of dissection - discussed with Dr De La Torre - he will see as an outpatient for ongoing surveillance - control htn - cont labetalol - may need to increase tomorrow - echo reviewed - AV normal # depr - restarted prozac and abilify # mediastinal lipomatosis - accounts for most of mediastinal widening # SUNIL - resolved, pre-renal # AGMA - starvation ketosis # mild hepatitis - d/t etOH; resolved # hypoK - resolved # forehead laceration - sutures removed today # dvt ppx - lovenox # dispo - has a court appointed guardian - looking at placement; possibly tomorrow or Friday Subjective: states he feels well and is going for a walk later today Objective: Vital Signs Temp Pulse Resp BP Pulse Ox 36.6 C 85 18 122/94 H 90 L 08/03/17 07:51 08/03/17 08:35 08/03/17 07:51 08/03/17 08:35 08/03/17 07:51 Laboratory Results 07/30/17 04:55 08/01/17 05:20 08/02/17 08/03/17 08/04/17 05:59 05:59 05:59 Intake Total 750 500 Output Total 975 Balance -225 500 - Physical Exam Constitutional: no apparent distress, other (mildly tremulous) Eyes: anicteric sclera Ears, Nose, Mouth, Throat: hearing normal Cardiovascular: No edema Respiratory: no respiratory distress Gastrointestinal: No distension Genitourinary: No hughes in urethra Skin: warm Musculoskeletal: full muscle strength Neurologic: AAOx3 Psychiatric: interacting appropriately ICD10 Worksheet Patient Problems: Problems Problem Status Onset Hydronephrosis with obstructing calculus Acute Low back pain Acute Lumbosacral stenosis Acute Arthrodesis status Acute Alcoholism Acute Facial laceration Acute Acute renal failure Acute Alcohol withdrawal delirium Acute
[2017-08-03] MEDS: NORTRIPTYLINE HCL 25 MG CAP PO SCH (21:26)
[2017-08-03] MEDS: MELATONIN 3 MG TAB PO SCH (21:26)
[2017-08-03] MEDS: PATCH REMOVAL 1 EA PATCH TD SCH (21:33)
[2017-08-04] MEDS: NICOTINE POLACRILEX 2 MG GUM B PRN ×3 (07:35→20:23)
[2017-08-04] MEDS: ENOXAPARIN 40 MG/0.4 ML SYR SC SCH (08:15)
[2017-08-04] MEDS: GABAPENTIN 300 MG CAP PO SCH ×3 (08:15→21:44)
[2017-08-04] MEDS: LABETALOL HCL 100 MG TAB PO SCH ×2 (08:15→21:44)
[2017-08-04] MEDS: BACLOFEN 10 MG TAB PO SCH ×3 (08:15→21:44)
[2017-08-04] MEDS: ARIPiprazole 5 MG TAB PO SCH (08:15)
[2017-08-04] MEDS: NICOTINE 21 MG/24 HR PATCH TD SCH (08:16)
[2017-08-04] MEDS: lamoTRIgine 25 MG TAB PO SCH (08:16)
[2017-08-04] MEDS: PARoxetine HCL 20 MG TAB PO SCH (08:16)
[2017-08-04] MEDS: THIAMINE HCL 100 MG TAB PO SCH (08:16)
[2017-08-04] MEDS: POTASSIUM CL 10 MEQ TAB PO SCH (08:16)
[2017-08-04] MEDS: LIDOCAINE 4%/MENTHOL 1% PATCH TD SCH (08:17)
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
--- NOTE | 2017-08-04 12:44 | ASMTCMCOM ---
CM Note CM Note Notes: CM missed a call from Valarie, [employer]itor. ISATU called Valarie back and left her a msg. CM spoke w/ Angelica Robles. Angelica reports that she will have Valarie call the referrals that have been made. Angelica reports that during the time she has worked w/ Adien she has not seen him be violent, aggressive or angry. Aiden has been agreeable to seek ETOH treatment. Angelica reports that pt had Abilify added and it may have helped his mood. Angelica would like pt to get into a [place] community to stop the ETOH and help w/ dementia. Angelica is advocating for pt to have back surgery. CM to follow. Plan: TBD Date Signed: 08/04/2017 12:43 PM Electronically Signed By:KIKA Walton
--- NOTE | 2017-08-04 13:09 | ASMTCMCOM ---
CM Note CM Note Notes: CM spoke w/ Crystal at [facility]. Most of the referrals sent have been denied. New referrals made. Please see below. [facility] [phone] [facility] [phone] [facility] [phone] [facility] [phone] [facility] [phone] [facility] [phone] [facility] [phone] [place] [phone] [facility] [phone] [facility] [phone] [facility] [phone] [facility] [phone] [facility] [phone] [place] [phone] [facility] [phone] [facility] [phone] [place] [phone] [place] [phone] [place] [facility] [phone] [place] [phone] Date Signed: 08/04/2017 01:08 PM Electronically Signed By:KIKA Walton
[2017-08-04] MEDS: NORTRIPTYLINE HCL 25 MG CAP PO SCH (21:44)
[2017-08-04] MEDS: MELATONIN 3 MG TAB PO SCH (21:44)
[2017-08-04] MEDS: PATCH REMOVAL 1 EA PATCH TD SCH (21:45)
[2017-08-05] MEDS: ACETAMINOPHEN 500 MG TAB PO PRN (04:34)
[2017-08-05] MEDS: ARIPiprazole 5 MG TAB PO SCH (07:48)
[2017-08-05] MEDS: POTASSIUM CL 10 MEQ TAB PO SCH (07:48)
[2017-08-05] MEDS: ENOXAPARIN 40 MG/0.4 ML SYR SC SCH (07:48)
[2017-08-05] MEDS: lamoTRIgine 25 MG TAB PO SCH (07:48)
[2017-08-05] MEDS: PARoxetine HCL 20 MG TAB PO SCH (07:49)
[2017-08-05] MEDS: THIAMINE HCL 100 MG TAB PO SCH (07:49)
[2017-08-05] MEDS: GABAPENTIN 300 MG CAP PO SCH ×3 (07:49→21:35)
[2017-08-05] MEDS: NICOTINE POLACRILEX 2 MG GUM B PRN ×3 (07:49→20:08)
[2017-08-05] MEDS: BACLOFEN 10 MG TAB PO SCH ×3 (07:49→21:35)
[2017-08-05] MEDS: LABETALOL HCL 100 MG TAB PO SCH ×2 (07:49→21:35)
[2017-08-05] MEDS: LIDOCAINE 4%/MENTHOL 1% PATCH TD SCH (07:52)
[2017-08-05] MEDS: NICOTINE 21 MG/24 HR PATCH TD SCH (07:52)
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
--- NOTE | 2017-08-05 12:14 | ASMTCMCOM ---
CM Note CM Note Notes: Spoke with Angelica, patient's guardian to update and coordinate the search for placement today. [facility] are the only possibilities right now. Contacted Arabi Jenna and Jammie states her worker Celia will come to the hospital to do an admission evaluation today. (Celia's # [phone]) Spoke with Valarie, Athletic Coordinator and gave her Celia's information so she can coordinate to be here at the same time. Left a message for Maki with [facility] to call me. CM will follow. Date Signed: 08/05/2017 12:14 PM Electronically Signed By:Linette Awan LCSW
[2017-08-05] MEDS ORDERED: MAGNESIUM SULF 1 GM/DEXTROSE 100 ML IV ONE (15:03)
[2017-08-05] MEDS: MELATONIN 3 MG TAB PO SCH (21:35)
[2017-08-05] MEDS: PATCH REMOVAL 1 EA PATCH TD SCH (21:35)
[2017-08-05] MEDS: NORTRIPTYLINE HCL 25 MG CAP PO SCH (21:35)
[2017-08-06] MEDS: NICOTINE POLACRILEX 2 MG GUM B PRN ×3 (06:49→20:08)
[2017-08-06] MEDS: lamoTRIgine 25 MG TAB PO SCH (08:46)
[2017-08-06] MEDS: ARIPiprazole 5 MG TAB PO SCH (08:46)
[2017-08-06] MEDS: BACLOFEN 10 MG TAB PO SCH ×3 (08:46→21:10)
[2017-08-06] MEDS: THIAMINE HCL 100 MG TAB PO SCH (08:46)
[2017-08-06] MEDS: POTASSIUM CL 10 MEQ TAB PO SCH (08:46)
[2017-08-06] MEDS: LABETALOL HCL 100 MG TAB PO SCH ×2 (08:47→21:11)
[2017-08-06] MEDS: PARoxetine HCL 20 MG TAB PO SCH (08:49)
[2017-08-06] MEDS: GABAPENTIN 300 MG CAP PO SCH ×3 (08:49→21:10)
[2017-08-06] MEDS: LIDOCAINE 4%/MENTHOL 1% PATCH TD SCH (08:50)
[2017-08-06] MEDS: NICOTINE 21 MG/24 HR PATCH TD SCH (08:51)
[2017-08-06] MEDS: ENOXAPARIN 40 MG/0.4 ML SYR SC SCH (08:53)
[2017-08-06] MEDS ORDERED: MAGNESIUM SULF 1 GM/DEXTROSE 100 ML IV ONE (09:52)
[2017-08-06] MEDS: ACETAMINOPHEN 500 MG TAB PO PRN (10:59)
--- NOTE | 2017-08-06 16:33 | ASMTCMCOM ---
CM Note CM Note Notes: Valarie from [employer] left a message to say the asessment for today had been cancelled and will be tomorrow @ 10:30 AM. CM attempted to get back in touch with her and left a message. ISATU was informed late yesterday afternoon that [facility] was no longer interested. It is unclear if the assessment tomorrow is with [facility] or someone else. CM will follow. Date Signed: 08/06/2017 04:32 PM Electronically Signed By:Linette Awan LCSW
--- NOTE | 2017-08-06 16:49 | ASMTCMCOM ---
CM Note CM Note Notes: Valarie called back to confirm the assessment is with [facility] tomorrow at 10:30 AM. Angelica, who is patient's guardian wants Valarie at the assessments, so Valarie will check in with ISATU and then attend the assessment. ISATU will follow. Date Signed: 08/06/2017 04:49 PM Electronically Signed By:Linette Awan LCSW
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
[2017-08-06] MEDS: MELATONIN 3 MG TAB PO SCH (21:10)
[2017-08-06] MEDS: NORTRIPTYLINE HCL 25 MG CAP PO SCH (21:11)
[2017-08-06] MEDS: PATCH REMOVAL 1 EA PATCH TD SCH (21:11)
[2017-08-07 05:33] LABS: PLATELET COUNT 285 10^3/uL (150-400)
[2017-08-07] MEDS: NICOTINE POLACRILEX 2 MG GUM B PRN ×3 (08:28→20:05)
[2017-08-07] MEDS: LIDOCAINE 4%/MENTHOL 1% PATCH TD SCH (08:28)
[2017-08-07] MEDS: ENOXAPARIN 40 MG/0.4 ML SYR SC SCH (08:29)
[2017-08-07] MEDS: THIAMINE HCL 100 MG TAB PO SCH (08:29)
[2017-08-07] MEDS: GABAPENTIN 300 MG CAP PO SCH ×3 (08:29→21:06)
[2017-08-07] MEDS: LABETALOL HCL 100 MG TAB PO SCH ×2 (08:29→21:07)
[2017-08-07] MEDS: NICOTINE 21 MG/24 HR PATCH TD SCH (08:29)
[2017-08-07] MEDS: POTASSIUM CL 10 MEQ TAB PO SCH (08:29)
[2017-08-07] MEDS: PARoxetine HCL 20 MG TAB PO SCH (08:30)
[2017-08-07] MEDS: lamoTRIgine 25 MG TAB PO SCH (08:30)
[2017-08-07] MEDS: ARIPiprazole 5 MG TAB PO SCH (08:30)
[2017-08-07] MEDS: BACLOFEN 10 MG TAB PO SCH ×3 (08:30→21:07)
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
--- NOTE | 2017-08-07 15:01 | ASMTCMCOM ---
CM Note CM Note Notes: Today Valarie Slater from [employer] (she works with legal guardian Angelica Robles) came to [facility] to meet with Pt. and [facility] Liaison. [facility] denied Pt. to their facilities. Valarie plans to call Angie [facility]adez [facility] about their ability to take Pt. Pt. should be desirable for locked memory unit at this time due to having a guardian and weekly visits from [facility] [employer] staff. Ronnie sent new Allscripts referals to memory care units/locked units today (see Allscripts). Sent referral information to Valarie via email. [employer] staff to follow up with calls to SNFs for admission. CM to follow. Date Signed: 08/07/2017 03:00 PM Electronically Signed By:Marjan Freitas LCSW
[2017-08-07] MEDS: MELATONIN 3 MG TAB PO SCH (21:07)
[2017-08-07] MEDS: NORTRIPTYLINE HCL 25 MG CAP PO SCH (21:07)
[2017-08-07] MEDS: PATCH REMOVAL 1 EA PATCH TD SCH (21:26)
[2017-08-08] MEDS: GABAPENTIN 300 MG CAP PO SCH ×3 (08:19→20:56)
[2017-08-08] MEDS: ARIPiprazole 5 MG TAB PO SCH (08:19)
[2017-08-08] MEDS: THIAMINE HCL 100 MG TAB PO SCH (08:19)
[2017-08-08] MEDS: POTASSIUM CL 10 MEQ TAB PO SCH (08:20)
[2017-08-08] MEDS: LABETALOL HCL 100 MG TAB PO SCH ×2 (08:20→20:42)
[2017-08-08] MEDS: lamoTRIgine 25 MG TAB PO SCH (08:21)
[2017-08-08] MEDS: ENOXAPARIN 40 MG/0.4 ML SYR SC SCH (08:21)
[2017-08-08] MEDS: BACLOFEN 10 MG TAB PO SCH ×3 (08:21→20:56)
[2017-08-08] MEDS: PARoxetine HCL 20 MG TAB PO SCH (08:21)
[2017-08-08] MEDS: NICOTINE 21 MG/24 HR PATCH TD SCH (08:22)
[2017-08-08] MEDS: LIDOCAINE 4%/MENTHOL 1% PATCH TD SCH (08:23)
[2017-08-08] MEDS ORDERED: MAGNESIUM SULF 1 GM/DEXTROSE 100 ML IV ONE (09:57)
[2017-08-08] MEDS: ACETAMINOPHEN 500 MG TAB PO PRN (10:45)
[2017-08-08] MEDS: NICOTINE POLACRILEX 2 MG GUM B PRN ×3 (10:46→19:45)
--- NOTE | 2017-08-08 10:59 | HOSPPROG ---
Hospitalist Progress Note Assessment/Plan: 61y male to ED after being found down. 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 Doing logic puzzles. Very pleasant. No complaints. Objective: Vital Signs Temp Pulse Resp BP Pulse Ox 36.6 C 83 18 110/89 H 96 08/08/17 08:00 08/08/17 08:20 08/08/17 08:00 08/08/17 08:20 08/08/17 08:00 Laboratory Results 08/07/17 04:35 08/07/17 04:35 08/07/17 08/08/17 08/09/17 05:59 05:59 05:59 Intake Total 2050 800 Output Total 804 Balance 1246 800 - Physical Exam Constitutional: no apparent distress, appears nourished Eyes: PERRL, anicteric sclera Ears, Nose, Mouth, Throat: moist mucous membranes, hearing normal Cardiovascular: No JVD, No edema Respiratory: no respiratory distress, clear to auscultation Gastrointestinal: No tenderness, No ascites Skin: warm, normal color Musculoskeletal: full muscle strength, no joint effusions Neurologic: AAOx3 Psychiatric: interacting appropriately, not encephalopathic, thought process linear ICD10 Worksheet Patient Problems: Problems Problem Status Onset Hydronephrosis with obstructing calculus Acute Low back pain Acute Lumbosacral stenosis Acute Arthrodesis status Acute Alcoholism Acute Facial laceration Acute Acute renal failure Acute Alcohol withdrawal delirium Acute
--- NOTE | 2017-08-08 17:44 | ASMTCMCOM ---
CM Note CM Note Notes: Today Ronnie worked with [facility] [employer] staff, Sylvia on Pt's placement. Unfortunately, [facility] staff is coming a -end in finding a secure locked unit for Pt. After discussing case with CM [employer], we decided to pursue regular rehab placement due to Pt. having no negative behaviors or attempts to leave. Made new All[facility] referrals to [facility] and [facility]. [facility] for [place] at the [facility]. Karen Cottrell from [facility] to do on-site visit tomorrow, Friday, 08/09 to determine suitability for admission. Please note that guardian Angelica Robles must be invovled in all decisions about Pt's care to include his discharge placement - . We still may need to address possible Court order to place Pt. in a secure unit only. CM to follow for d/c POC. Date Signed: 08/08/2017 05:43 PM Electronically Signed By:Marjan Freitas LCSW
[2017-08-08] MEDS: NORTRIPTYLINE HCL 25 MG CAP PO SCH (20:45)
[2017-08-08] MEDS: MELATONIN 3 MG TAB PO SCH (20:45)
[2017-08-09] MEDS: PATCH REMOVAL 1 EA PATCH TD SCH ×2 (03:08→20:12)
[2017-08-09] MEDS: LABETALOL HCL 100 MG TAB PO SCH ×2 (08:39→20:08)
[2017-08-09] MEDS: POTASSIUM CL 10 MEQ TAB PO SCH (08:40)
[2017-08-09] MEDS: ARIPiprazole 5 MG TAB PO SCH (08:40)
[2017-08-09] MEDS: BACLOFEN 10 MG TAB PO SCH ×3 (08:40→23:02)
[2017-08-09] MEDS: THIAMINE HCL 100 MG TAB PO SCH (08:40)
[2017-08-09] MEDS: PARoxetine HCL 20 MG TAB PO SCH (08:40)
[2017-08-09] MEDS: lamoTRIgine 25 MG TAB PO SCH (08:40)
[2017-08-09] MEDS: NICOTINE 21 MG/24 HR PATCH TD SCH (08:41)
[2017-08-09] MEDS: GABAPENTIN 300 MG CAP PO SCH ×3 (08:41→23:01)
[2017-08-09] MEDS: LIDOCAINE 4%/MENTHOL 1% PATCH TD SCH (08:41)
[2017-08-09] MEDS: ENOXAPARIN 40 MG/0.4 ML SYR SC SCH (08:42)
--- NOTE | 2017-08-09 10:22 | PDIAF ---
- Diagnosis Diagnosis: FTT Code Status: Full Code - Medication Management Discharge Medications: Medications to Continue on Transfer Gabapentin [Neurontin] 600 mg PO TID 01/05/15 [Last Taken Unknown] ARIPiprazole [Aripiprazole] 5 mg PO DAILY 07/24/17 [Last Taken Unknown] Baclofen [Baclofen 10 mg (*)] 10 mg PO TID 07/24/17 [Last Taken Unknown] Nortriptyline HCl [Pamelor 25 mg (*)] 25 mg PO HS 07/24/17 [Last Taken Unknown] Paroxetine HCl 20 mg PO DAILY 07/24/17 [Last Taken Unknown] Potassium Chloride [Klor-Con 10] 10 meq PO DAILY 07/24/17 [Last Taken Unknown] lamoTRIgine [LaMICtal] 25 mg PO DAILY 07/24/17 [Last Taken Unknown] Acetaminophen [Tylenol ES 500 mg (*)] 1,000 mg PO Q6HRS PRN tab 08/09/17 [Last Taken Unknown] Calcium Carbonate [Tums 500MG (*)] 500 mg PO TID PRN tab.chew 08/09/17 [Last Taken Unknown] Labetalol HCl [Trandate 100 mg (*)] 100 mg PO BID tab 08/09/17 [Last Taken Unknown] Lidocaine 4%/Menthol 1% [Icy Hot Lidocaine/Menthol 4%/1% Patch (*)] 1 patch TD DAILY patch 08/09/17 [Last Taken Unknown] Melatonin [Melatonin 3 MG (*)] 1.5 mg PO HS tab 08/09/17 [Last Taken Unknown] Nicotine Polacrilex [Nicorette gum (*)] 2 mg B PRN PRN gum 08/09/17 [Last Taken Unknown] Nicotine [Nicoderm Cq 21 mg (*)] 21 mg TD DAILY patch 08/09/17 [Last Taken Unknown] Patch Removal 1 ea TD DAILY21 patch 08/09/17 [Last Taken Unknown] Thiamine HCl [Vitamin B-1] 100 mg PO DAILY tab 08/09/17 [Last Taken Unknown] Discharge Medications: Refer to the Discharge Home Medication list for PRN reason. PICC Care - Routine: N/A - Orders Services needed: Registered Nurse, Physical Therapy, Occupational Therapy Isolation Type: None Diet Recommendation: no restrictions on diet Diet Texture: Regular Texture Diet, Thin Liquids, Meds Whole w/Liquids - Follow Up Care Current Providers and Referrals: Gilberto Burrell MD [Primary Care Provider] - As per Instructions Jesse De La Torre DO [Doctor of Osteopathy] -
[2017-08-09] MEDS ORDERED: MAGNESIUM SULF 1 GM/DEXTROSE 100 ML IV ONE (11:12)
--- NOTE | 2017-08-09 11:36 | HOSPPROG ---
Hospitalist Progress Note Assessment/Plan: 61y male to ED after being found down. 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 Objective: Vital Signs Temp Pulse Resp BP Pulse Ox 36.5 C 64 16 147/104 H 95 08/09/17 07:19 08/09/17 07:19 08/09/17 07:19 08/09/17 07:19 08/09/17 07:19 Laboratory Results 08/07/17 04:35 08/07/17 04:35 08/08/17 08/09/17 08/10/17 05:59 05:59 05:59 Intake Total 800 400 Balance 800 400 - Physical Exam Constitutional: no apparent distress, appears nourished, not in pain Eyes: PERRL, anicteric sclera, EOMI Ears, Nose, Mouth, Throat: moist mucous membranes, hearing normal, ears appear normal Cardiovascular: No JVD, No tachycardia, No edema Respiratory: no respiratory distress, no rales or rhonchi, clear to auscultation Gastrointestinal: normoactive bowel sounds, No tenderness, No ascites Skin: warm, normal color, No mottled Musculoskeletal: full muscle strength, normal joint ROM, no joint effusions Neurologic: AAOx3 Psychiatric: interacting appropriately, not anxious, not encephalopathic ICD10 Worksheet Patient Problems: Problems Problem Status Onset Hydronephrosis with obstructing calculus Acute Low back pain Acute Lumbosacral stenosis Acute Arthrodesis status Acute Alcoholism Acute Facial laceration Acute Acute renal failure Acute Alcohol withdrawal delirium Acute
[2017-08-09] MEDS: NICOTINE POLACRILEX 2 MG GUM B PRN ×2 (13:21→20:10)
--- NOTE | 2017-08-09 14:05 | ASMTCMCOM ---
CM Note CM Note Notes: Karen was here to evaluate pt, he has been accepted but per Jennifer Robles (legal guardian [phone]) pt has a court order that states pt must be in a secure unit. ISATU w/f, Hemalatha Yuan notified. DC Plan: SNF Date Signed: 08/09/2017 02:04 PM Electronically Signed By:Abena Garner RN
[2017-08-09] MEDS: MELATONIN 3 MG TAB PO SCH (20:10)
[2017-08-09] MEDS: NORTRIPTYLINE HCL 25 MG CAP PO SCH (20:10)
[2017-08-10] MEDS: LABETALOL HCL 100 MG TAB PO SCH ×2 (08:36→20:26)
[2017-08-10] MEDS: POTASSIUM CL 10 MEQ TAB PO SCH (08:36)
[2017-08-10] MEDS: BACLOFEN 10 MG TAB PO SCH ×3 (08:37→20:26)
[2017-08-10] MEDS: GABAPENTIN 300 MG CAP PO SCH ×3 (08:37→20:25)
[2017-08-10] MEDS: lamoTRIgine 25 MG TAB PO SCH (08:37)
[2017-08-10] MEDS: THIAMINE HCL 100 MG TAB PO SCH (08:37)
[2017-08-10] MEDS: NICOTINE 21 MG/24 HR PATCH TD SCH (08:37)
[2017-08-10] MEDS: ARIPiprazole 5 MG TAB PO SCH (08:37)
[2017-08-10] MEDS: ENOXAPARIN 40 MG/0.4 ML SYR SC SCH (08:38)
[2017-08-10] MEDS: LIDOCAINE 4%/MENTHOL 1% PATCH TD SCH (08:38)
[2017-08-10] MEDS: PARoxetine HCL 20 MG TAB PO SCH (08:42)
--- NOTE | 2017-08-10 13:30 | HOSPPROG ---
Hospitalist Progress Note Assessment/Plan: 61y male to ED after being found down. 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 No issues. Objective: Vital Signs Temp Pulse Resp BP Pulse Ox 37.1 C 72 16 135/85 H 94 08/10/17 07:22 08/10/17 07:22 08/10/17 07:22 08/10/17 07:22 08/10/17 07:22 Laboratory Results 08/07/17 04:35 08/07/17 04:35 08/09/17 08/10/17 08/11/17 05:59 05:59 05:59 Intake Total 400 2350 Balance 400 2350 - Physical Exam Constitutional: no apparent distress, appears nourished Eyes: PERRL, anicteric sclera Ears, Nose, Mouth, Throat: moist mucous membranes, hearing normal Cardiovascular: No JVD, No edema Respiratory: no respiratory distress, reduced air movement Gastrointestinal: No tenderness, No ascites Skin: warm, normal color Musculoskeletal: no joint effusions, generalized weakness Neurologic: AAOx3 Psychiatric: interacting appropriately, not anxious, not encephalopathic ICD10 Worksheet Patient Problems: Problems Problem Status Onset Hydronephrosis with obstructing calculus Acute Low back pain Acute Lumbosacral stenosis Acute Arthrodesis status Acute Alcoholism Acute Facial laceration Acute Acute renal failure Acute Alcohol withdrawal delirium Acute
[2017-08-10] MEDS: NICOTINE POLACRILEX 2 MG GUM B PRN (14:23)
[2017-08-10] MEDS: MELATONIN 3 MG TAB PO SCH (20:26)
[2017-08-10] MEDS: NORTRIPTYLINE HCL 25 MG CAP PO SCH (20:26)
[2017-08-10] MEDS: PATCH REMOVAL 1 EA PATCH TD SCH (20:27)
[2017-08-11] MEDS: BACLOFEN 10 MG TAB PO SCH ×3 (08:44→20:26)
[2017-08-11] MEDS: PARoxetine HCL 20 MG TAB PO SCH (08:44)
[2017-08-11] MEDS: POTASSIUM CL 10 MEQ TAB PO SCH (08:44)
[2017-08-11] MEDS: lamoTRIgine 25 MG TAB PO SCH (08:44)
[2017-08-11] MEDS: LABETALOL HCL 100 MG TAB PO SCH ×2 (08:45→20:26)
[2017-08-11] MEDS: GABAPENTIN 300 MG CAP PO SCH ×3 (08:45→20:26)
[2017-08-11] MEDS: NICOTINE 21 MG/24 HR PATCH TD SCH (08:45)
[2017-08-11] MEDS: THIAMINE HCL 100 MG TAB PO SCH (08:45)
[2017-08-11] MEDS: ARIPiprazole 5 MG TAB PO SCH (08:45)
[2017-08-11] MEDS: ENOXAPARIN 40 MG/0.4 ML SYR SC SCH (08:45)
[2017-08-11] MEDS: LIDOCAINE 4%/MENTHOL 1% PATCH TD SCH (08:46)
--- NOTE | 2017-08-11 10:03 | ASMTCMCOM ---
CM Note CM Note Notes: Edwin Collier, assistant dean to Jennifer of [employer], called and requested we send patient's information to [facility]. They are saying patient has to have a locked unti per the court papers. [facility] has accepted patient but does not have a locked unit. Informed Edwin we had already sent a referral to [facility] on 07/28/17. Mary is saying she did not get the referral and wants it to be hand faxed because their All[employer] does not work well. Resent the referral by fax machine vs Allscripts. CM will follow. Date Signed: 08/11/2017 10:02 AM Electronically Signed By:Linette Awan LCSW
[2017-08-11] MEDS: NICOTINE POLACRILEX 2 MG GUM B PRN (11:15)
--- NOTE | 2017-08-11 13:08 | HOSPPROG ---
Hospitalist Progress Note Assessment/Plan: 61y male to ED after being found down. 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 Wants to leave hospital. Objective: Vital Signs Temp Pulse Resp BP Pulse Ox 37.1 C 84 16 124/85 H 94 08/11/17 08:48 08/11/17 08:48 08/11/17 08:48 08/11/17 08:48 08/11/17 08:48 Laboratory Results 08/07/17 04:35 08/07/17 04:35 08/10/17 08/11/17 08/12/17 05:59 05:59 05:59 Intake Total 2350 1999 Balance 2350 1999 - Physical Exam Constitutional: no apparent distress, appears nourished Eyes: PERRL, anicteric sclera Ears, Nose, Mouth, Throat: moist mucous membranes, hearing normal Cardiovascular: No JVD, No edema Respiratory: no respiratory distress, clear to auscultation Gastrointestinal: No tenderness, No ascites Skin: warm, normal color Musculoskeletal: normal joint ROM, no joint effusions Neurologic: AAOx3 Psychiatric: interacting appropriately, not anxious ICD10 Worksheet Patient Problems: Problems Problem Status Onset Hydronephrosis with obstructing calculus Acute Low back pain Acute Lumbosacral stenosis Acute Arthrodesis status Acute Alcoholism Acute Facial laceration Acute Acute renal failure Acute Alcohol withdrawal delirium Acute
--- NOTE | 2017-08-11 16:14 | ASMTCMCOM ---
ISATU Note ISATU Note Notes: Spoke with Karen from [facility] regarding patient. She visited with patient today and thinks he will do fine in their facility. He has to agree to wear a wander device that will lock outside doors as he gets close to them. Karen states if she doesn't get a decision today she will have to give the last male bed to someone else. I informed Edwin of this and he had the vp of digital marketing call me. Explained this to the vp of digital marketing (Merrill Guillaume) who states he is going to try to connect with Jennifer who is in court today. He was able to talk to Jennifer and they called Karen at [facility]. They have approved him going to [facility] and Karen set up transport for patient tomorrow 08-12-17 at 12:00 noon with [place].ISATU informed patient, nurse, and dr. LUNSFORD will follow. Date Signed: 08/11/2017 04:14 PM Electronically Signed By:Linette Awan LCSW
[2017-08-11] MEDS: MELATONIN 3 MG TAB PO SCH (20:26)
[2017-08-11] MEDS: NORTRIPTYLINE HCL 25 MG CAP PO SCH (20:26)
[2017-08-11] MEDS: PATCH REMOVAL 1 EA PATCH TD SCH (20:27)
--- NOTE | 2017-08-12 08:37 | HOSPPROG ---
Hospitalist Progress Note Assessment/Plan: 61y male to ED after being found down. 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 # SUNIL - resolved, pre-renal # AGMA - starvation ketosis resolved # mild hepatitis - d/t etOH; resolved # hypoK - resolved # forehead laceration - sutures removed # dvt ppx - lovenox # dispo - has a court appointed guardian "managed care specialist" - looking at placement #Plan: dc today Subjective: Aiden has no complaints, looking forward to dc Objective: Vital Signs Temp Pulse Resp BP Pulse Ox 36.4 C 71 14 133/95 H 92 08/12/17 08:00 08/12/17 08:00 08/12/17 08:00 08/12/17 08:00 08/12/17 08:00 Laboratory Results 08/07/17 04:35 08/07/17 04:35 08/11/17 08/12/17 08/13/17 05:59 05:59 05:59 Intake Total 1999 600 Balance 1999 600 - Physical Exam Constitutional: no apparent distress, appears nourished, not in pain Eyes: PERRL Ears, Nose, Mouth, Throat: hearing normal Respiratory: no respiratory distress Gastrointestinal: normoactive bowel sounds Skin: warm Musculoskeletal: full muscle strength Psychiatric: interacting appropriately, not anxious, not encephalopathic ICD10 Worksheet Patient Problems: Problems Problem Status Onset Acute renal failure Acute Alcohol withdrawal delirium Acute Facial laceration Acute Alcoholism Acute Arthrodesis status Acute Hydronephrosis with obstructing calculus Acute Low back pain Acute Lumbosacral stenosis Acute
[2017-08-12] MEDS: GABAPENTIN 300 MG CAP PO SCH ×3 (09:25→21:04)
[2017-08-12] MEDS: ARIPiprazole 5 MG TAB PO SCH (09:25)
[2017-08-12] MEDS: THIAMINE HCL 100 MG TAB PO SCH (09:25)
[2017-08-12] MEDS: BACLOFEN 10 MG TAB PO SCH ×3 (09:25→21:04)
[2017-08-12] MEDS: LIDOCAINE 4%/MENTHOL 1% PATCH TD SCH (09:26)
[2017-08-12] MEDS: NICOTINE 21 MG/24 HR PATCH TD SCH (09:26)
[2017-08-12] MEDS: PARoxetine HCL 20 MG TAB PO SCH (09:26)
[2017-08-12] MEDS: POTASSIUM CL 10 MEQ TAB PO SCH (09:26)
[2017-08-12] MEDS: lamoTRIgine 25 MG TAB PO SCH (09:26)
[2017-08-12] MEDS: LABETALOL HCL 100 MG TAB PO SCH ×2 (09:26→21:05)
[2017-08-12] MEDS: ENOXAPARIN 40 MG/0.4 ML SYR SC SCH (09:27)
--- NOTE | 2017-08-12 09:43 | PDIAF ---
- Diagnosis Diagnosis: FTT, acute encehalopathy, ascending thoracic aortic aneursym Code Status: Full Code - Medication Management Discharge Medications: Medications to Continue on Transfer Gabapentin [Neurontin] 600 mg PO TID 01/05/15 [Last Taken Unknown] ARIPiprazole [Aripiprazole] 5 mg PO DAILY 07/24/17 [Last Taken Unknown] Baclofen [Baclofen 10 mg (*)] 10 mg PO TID 07/24/17 [Last Taken Unknown] Nortriptyline HCl [Pamelor 25 mg (*)] 25 mg PO HS 07/24/17 [Last Taken Unknown] Paroxetine HCl 20 mg PO DAILY 07/24/17 [Last Taken Unknown] Potassium Chloride [Klor-Con 10] 10 meq PO DAILY 07/24/17 [Last Taken Unknown] lamoTRIgine [LaMICtal] 25 mg PO DAILY 07/24/17 [Last Taken Unknown] Acetaminophen [Tylenol ES 500 mg (*)] 1,000 mg PO Q6HRS PRN tab 08/09/17 [Last Taken Unknown] Calcium Carbonate [Tums 500MG (*)] 500 mg PO TID PRN tab.chew 08/09/17 [Last Taken Unknown] Labetalol HCl [Trandate 100 mg (*)] 100 mg PO BID tab 08/09/17 [Last Taken Unknown] Lidocaine 4%/Menthol 1% [Icy Hot Lidocaine/Menthol 4%/1% Patch (*)] 1 patch TD DAILY patch 08/09/17 [Last Taken Unknown] Melatonin [Melatonin 3 MG (*)] 1.5 mg PO HS tab 08/09/17 [Last Taken Unknown] Nicotine Polacrilex [Nicorette gum (*)] 2 mg B PRN PRN gum 08/09/17 [Last Taken Unknown] Nicotine [Nicoderm Cq 21 mg (*)] 21 mg TD DAILY patch 08/09/17 [Last Taken Unknown] Patch Removal 1 ea TD DAILY21 patch 08/09/17 [Last Taken Unknown] Thiamine HCl [Vitamin B-1] 100 mg PO DAILY tab 08/09/17 [Last Taken Unknown] Discharge Medications: Refer to the Discharge Home Medication list for PRN reason. PICC Care - Routine: N/A - Orders Services needed: Registered Nurse, Physical Therapy, Occupational Therapy Isolation Type: None Diet Recommendation: no restrictions on diet Diet Texture: Regular Texture Diet, Thin Liquids, Meds Whole w/Liquids Additional: patient needs f/u with Dr De La Torre for survellance of his aneurysm - Follow Up Care Current Providers and Referrals: Gilberto Burrell MD [Primary Care Provider] - As per Instructions Jesse De La Torre DO [Doctor of Osteopathy] -
--- NOTE | 2017-08-12 11:07 | GDS ---
[f rep st] DISCHARGE SUMMARY DISCHARGE DIAGNOSIS: 1. Acute encephalopathy. 2. Alcohol withdrawal. 3. Ascending thoracic aneurysm. 4. Depression. 5. Mediastinal lipomatosis. 6. Acute kidney injury. 7. Anion gap metabolic acidosis. 8. Mild hepatitis. 9. Hypo-potassium. 10. Forehead laceration. CONSULTATION: Dr. Niraj Cruz. Briefly, Mr. Caballero is a 61-year-old gentleman who was brought to the emergency department after being found on the ground awake outside his apartment in [facility]. He was disoriented, had a head laceration. He did not recall any specific injury. He became confused, tremulous and agitated and it was felt that he was withdrawing from alcohol. He was given Ativan and became unresponsive ,and had some observed apneas. Subsequently, a nasal trumpet was placed. He was placed on BiPAP in the intensive care unit. He improved during his stay. In addition, a CTA of the chest was performed due to a widened mediastinum. This showed no evidence of a mediastinal hematoma. He does have an ascending thoracic aortic aneurysm at 4.6 cm without dissection. He also was noted to have cardiomegaly with mild congestive heart failure, as well as generalized hepatic steatosis. He was given supportive care with his alcohol withdrawal. He improved throughout his stay. Today, he is on a med/surg floor. He is cooperative and alert. He will be discharged to a long-term care. HOSPITAL COURSE: 1. Acute encephalopathy. This is due to alcohol withdrawal. He is not withdrawing and he appears to be at baseline. 2. Alcohol withdrawal. He was treated with the CIWA protocol. 3. Ascending thoracic aneurysm. This needs to be monitored in the outpatient setting. He will see Dr. De La Torre. His aneurysm is 4.6 cm. It was noted to be 4.2 cm in 2015. 4. Depression. Resumed Prozac and Abilify. 5. Mediastinal lipomatosis. This accounts for most of his mediastinal widening. 6. Acute kidney injury, resolved. 7. Anion gap metabolic acidosis, resolved. 8. Mild hepatitis, resolved. 9. Hypokalemia, resolved. 10. Forehead laceration. Sutures removed. DISCHARGE CONDITION: Stable. Blood pressure is 133/95, heart rate is 71, respiratory rate is 14, O2 saturations on room air 92%, temperature 36.4 Celsius. MEDICATIONS AT DISCHARGE: Please see the EMR. DISCHARGE INSTRUCTIONS: 1. He will need further surveillance with Dr. De La Torre in the outpatient setting. 2. If he develops fever, chills, chest pain, shortness of breath, return to the ER. TIME SPENT: Greater than 30 minutes discharging and coordinating the patient's care. Addendum: patient was discharged on August 15, 2017 due to placement. No other changes to the above. Vital signs are stable at discharge. /[id number]/MODL MTDD
[2017-08-12] MEDS: NICOTINE POLACRILEX 2 MG GUM B PRN ×2 (15:22→21:06)
[2017-08-12] MEDS: ACETAMINOPHEN 500 MG TAB PO PRN (21:04)
[2017-08-12] MEDS: NORTRIPTYLINE HCL 25 MG CAP PO SCH (21:04)
[2017-08-12] MEDS: MELATONIN 3 MG TAB PO SCH (21:05)
[2017-08-12] MEDS: PATCH REMOVAL 1 EA PATCH TD SCH (21:07)
[2017-08-12] MEDS ORDERED: LIDOCAINE 4%/MENTHOL 1% PATCH TD SCH (22:30)
--- NOTE | 2017-08-13 08:56 | ASMTCMCOM ---
CM Note CM Note Notes: Discharge was cancelled by [facility] due to differences in expectations between them and [facility] [employer] [facility]. CM to continue search for accepting facility for patient. CM will follow. Date Signed: 08/13/2017 08:55 AM Electronically Signed By:Linette Awan LCSW
[2017-08-13] MEDS: ENOXAPARIN 40 MG/0.4 ML SYR SC SCH (08:59)
[2017-08-13] MEDS: LIDOCAINE 4%/MENTHOL 1% PATCH TD SCH (08:59)
[2017-08-13] MEDS: PARoxetine HCL 20 MG TAB PO SCH (09:00)
[2017-08-13] MEDS: LABETALOL HCL 100 MG TAB PO SCH ×2 (09:00→21:02)
[2017-08-13] MEDS: POTASSIUM CL 10 MEQ TAB PO SCH (09:00)
[2017-08-13] MEDS: GABAPENTIN 300 MG CAP PO SCH ×3 (09:00→21:03)
[2017-08-13] MEDS: ARIPiprazole 5 MG TAB PO SCH (09:00)
[2017-08-13] MEDS: lamoTRIgine 25 MG TAB PO SCH (09:00)
[2017-08-13] MEDS: NICOTINE 21 MG/24 HR PATCH TD SCH (09:02)
[2017-08-13] MEDS: BACLOFEN 10 MG TAB PO SCH ×3 (09:02→21:02)
[2017-08-13] MEDS: THIAMINE HCL 100 MG TAB PO SCH (09:03)
[2017-08-13] MEDS: PATCH REMOVAL 1 EA PATCH TD SCH (09:03)
[2017-08-13] MEDS: NICOTINE POLACRILEX 2 MG GUM B PRN ×2 (09:06→21:04)
[2017-08-13] MEDS: ACETAMINOPHEN 500 MG TAB PO PRN (09:10)
--- NOTE | 2017-08-13 09:40 | HOSPPROG ---
Hospitalist Progress Note Assessment/Plan: 61y male to ED after being found down. 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 Objective: Vital Signs Temp Pulse Resp BP Pulse Ox 36.4 C 66 18 120/91 H 94 08/13/17 07:42 08/13/17 09:00 08/13/17 07:42 08/13/17 07:42 08/13/17 07:42 Laboratory Results 08/07/17 04:35 08/07/17 04:35 08/12/17 08/13/17 08/14/17 05:59 05:59 05:59 Intake Total 600 960 Balance 600 960 - Physical Exam Constitutional: no apparent distress, appears nourished, not in pain Eyes: PERRL Ears, Nose, Mouth, Throat: hearing normal Respiratory: no respiratory distress Gastrointestinal: normoactive bowel sounds Skin: warm Musculoskeletal: full muscle strength Neurologic: AAOx3 Psychiatric: interacting appropriately ICD10 Worksheet Patient Problems: Problems Problem Status Onset Acute renal failure Acute Alcohol withdrawal delirium Acute Facial laceration Acute Alcoholism Acute Arthrodesis status Acute Hydronephrosis with obstructing calculus Acute Low back pain Acute Lumbosacral stenosis Acute
--- NOTE | 2017-08-13 18:24 | ASMTCMCOM ---
CM Note CM Note Notes: Spoke with Angelica (guardian) today. Angelica would like to see Aiden in a locked unit because of his addiction to alcohol. She says 'he just can't help himself'. She and her team are going to be working to find placement for Aiden there are three potential 'yes' facilities: [facility], [place], and [facility]. Angelica will call me with an update tomorrow. Date Signed: 08/13/2017 06:24 PM Electronically Signed By:Hemalatha Yuan RN
[2017-08-13] MEDS: MELATONIN 3 MG TAB PO SCH (21:02)
[2017-08-13] MEDS: NORTRIPTYLINE HCL 25 MG CAP PO SCH (21:02)
[2017-08-14] MEDS: PATCH REMOVAL 1 EA PATCH TD SCH ×3 (05:55→21:31)
[2017-08-14] MEDS: LIDOCAINE 4%/MENTHOL 1% PATCH TD SCH (08:46)
[2017-08-14] MEDS: GABAPENTIN 300 MG CAP PO SCH ×3 (08:49→21:27)
[2017-08-14] MEDS: THIAMINE HCL 100 MG TAB PO SCH (08:50)
[2017-08-14] MEDS: lamoTRIgine 25 MG TAB PO SCH (08:50)
[2017-08-14] MEDS: PARoxetine HCL 20 MG TAB PO SCH (08:50)
[2017-08-14] MEDS: BACLOFEN 10 MG TAB PO SCH ×3 (08:50→21:28)
[2017-08-14] MEDS: ARIPiprazole 5 MG TAB PO SCH (08:50)
[2017-08-14] MEDS: POTASSIUM CL 10 MEQ TAB PO SCH (08:50)
[2017-08-14] MEDS: LABETALOL HCL 100 MG TAB PO SCH ×2 (08:50→21:28)
[2017-08-14] MEDS: NICOTINE 21 MG/24 HR PATCH TD SCH (08:51)
[2017-08-14] MEDS: ENOXAPARIN 40 MG/0.4 ML SYR SC SCH (08:52)
[2017-08-14 15:00] VITALS: O2SAT 93
--- NOTE | 2017-08-14 16:09 | HOSPPROG ---
Hospitalist Progress Note Assessment/Plan: 61y male to ED after being found down. 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 Today is his birthday and he is very appreciative being in the hospital. Subjective: Aiden has no complaints. Objective: Vital Signs Temp Pulse Resp BP Pulse Ox 36.9 C 78 18 116/82 H 93 08/14/17 14:59 08/14/17 14:59 08/14/17 14:59 08/14/17 14:59 08/14/17 14:59 Laboratory Results 08/07/17 04:35 08/07/17 04:35 08/13/17 08/14/17 08/15/17 05:59 05:59 05:59 Intake Total 960 Balance 960 - Physical Exam Constitutional: no apparent distress, appears nourished, not in pain Eyes: PERRL Ears, Nose, Mouth, Throat: hearing normal Cardiovascular: regular rate and rhythym Respiratory: no respiratory distress Gastrointestinal: normoactive bowel sounds Skin: warm Musculoskeletal: full muscle strength Psychiatric: interacting appropriately ICD10 Worksheet Patient Problems: Problems Problem Status Onset Acute renal failure Acute Alcohol withdrawal delirium Acute Facial laceration Acute Alcoholism Acute Arthrodesis status Acute Hydronephrosis with obstructing calculus Acute Low back pain Acute Lumbosacral stenosis Acute
[2017-08-14] MEDS: NICOTINE POLACRILEX 2 MG GUM B PRN (16:35)
--- NOTE | 2017-08-14 17:30 | ASMTCMCOM ---
CM Note CM Note Notes: Today Edwin called from [facility]. Stated a liaison from [facility] would be coming to assess Pt. for admission. Ms. Felicia Lucas , [employer], came to do assessment. Felicia stated that Pt. was not appropriate for their particular secure unit due to his alcoholic dementia - they take mostly Alzheimers dementia and some Lewy Body dementia depending on behaviors. Felicia was open to assisting [facility] with other dementia placements, but Pt. not a good fit for them. Felicia communicated this over the phone to Valarie at [facility]. SW/ISATU following case for d/c POC with [facility] taking the lead for placement. Date Signed: 08/14/2017 05:29 PM Electronically Signed By:Marjan Freitas LCSW
[2017-08-14] MEDS: MELATONIN 3 MG TAB PO SCH (21:28)
[2017-08-14] MEDS: NORTRIPTYLINE HCL 25 MG CAP PO SCH (21:28)
[2017-08-15 06:57] VITALS: BP 105/81; PULSE 75; RESP 16; TEMP 98.2
[2017-08-15] MEDS: POTASSIUM CL 10 MEQ TAB PO SCH (07:24)
[2017-08-15] MEDS: PARoxetine HCL 20 MG TAB PO SCH (07:24)
[2017-08-15] MEDS: ARIPiprazole 5 MG TAB PO SCH (07:25)
[2017-08-15] MEDS: GABAPENTIN 300 MG CAP PO SCH (07:25)
[2017-08-15] MEDS: lamoTRIgine 25 MG TAB PO SCH (07:25)
[2017-08-15] MEDS: LABETALOL HCL 100 MG TAB PO SCH (07:25)
[2017-08-15] MEDS: THIAMINE HCL 100 MG TAB PO SCH (07:26)
[2017-08-15] MEDS: BACLOFEN 10 MG TAB PO SCH (07:26)
[2017-08-15] MEDS: ENOXAPARIN 40 MG/0.4 ML SYR SC SCH (07:26)
[2017-08-15] MEDS: LIDOCAINE 4%/MENTHOL 1% PATCH TD SCH ×2 (07:27→07:28)
[2017-08-15] MEDS: NICOTINE 21 MG/24 HR PATCH TD SCH (07:28)
[2017-08-15] MEDS: NICOTINE POLACRILEX 2 MG GUM B PRN (09:42)
[2017-08-15] MEDS: PATCH REMOVAL 1 EA PATCH TD SCH (09:42)
--- NOTE | 2017-08-15 11:54 | HOSPPROG ---
Hospitalist Progress Note Assessment/Plan: 61y male to ED after being found down. 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 Subjective: Aiden is in good spirits, has no complaints. Objective: Vital Signs Temp Pulse Resp BP Pulse Ox 36.8 C 75 16 105/81 H 93 08/15/17 06:56 08/15/17 06:56 08/15/17 06:56 08/15/17 06:56 08/15/17 06:56 Laboratory Results 08/07/17 04:35 08/07/17 04:35 - Physical Exam Constitutional: no apparent distress, appears nourished Eyes: PERRL Ears, Nose, Mouth, Throat: hearing normal Respiratory: no respiratory distress Skin: warm Musculoskeletal: full muscle strength Neurologic: AAOx3 Psychiatric: interacting appropriately, poor insight ICD10 Worksheet Patient Problems: Problems Problem Status Onset Acute renal failure Acute Alcohol withdrawal delirium Acute Facial laceration Acute Alcoholism Acute Arthrodesis status Acute Hydronephrosis with obstructing calculus Acute Low back pain Acute Lumbosacral stenosis Acute
--- NOTE | 2017-08-15 11:56 | PDIAF ---
- Diagnosis Diagnosis: FTT, acute encehalopathy, ascending thoracic aortic aneursym Code Status: Full Code - Medication Management Discharge Medications: Medications to Continue on Transfer Gabapentin [Neurontin] 600 mg PO TID 01/05/15 [Last Taken Unknown] ARIPiprazole [Aripiprazole] 5 mg PO DAILY 07/24/17 [Last Taken Unknown] Baclofen [Baclofen 10 mg (*)] 10 mg PO TID 07/24/17 [Last Taken Unknown] Nortriptyline HCl [Pamelor 25 mg (*)] 25 mg PO HS 07/24/17 [Last Taken Unknown] Paroxetine HCl 20 mg PO DAILY 07/24/17 [Last Taken Unknown] Potassium Chloride [Klor-Con 10] 10 meq PO DAILY 07/24/17 [Last Taken Unknown] lamoTRIgine [LaMICtal] 25 mg PO DAILY 07/24/17 [Last Taken Unknown] Acetaminophen [Tylenol ES 500 mg (*)] 1,000 mg PO Q6HRS PRN tab 08/09/17 [Last Taken Unknown] Calcium Carbonate [Tums 500MG (*)] 500 mg PO TID PRN tab.chew 08/09/17 [Last Taken Unknown] Labetalol HCl [Trandate 100 mg (*)] 100 mg PO BID tab 08/09/17 [Last Taken Unknown] Lidocaine 4%/Menthol 1% [Icy Hot Lidocaine/Menthol 4%/1% Patch (*)] 1 patch TD DAILY patch 08/09/17 [Last Taken Unknown] Melatonin [Melatonin 3 MG (*)] 1.5 mg PO HS tab 08/09/17 [Last Taken Unknown] Nicotine Polacrilex [Nicorette gum (*)] 2 mg B PRN PRN gum 08/09/17 [Last Taken Unknown] Nicotine [Nicoderm Cq 21 mg (*)] 21 mg TD DAILY patch 08/09/17 [Last Taken Unknown] Patch Removal 1 ea TD DAILY21 patch 08/09/17 [Last Taken Unknown] Thiamine HCl [Vitamin B-1] 100 mg PO DAILY tab 08/09/17 [Last Taken Unknown] Discharge Medications: Refer to the Discharge Home Medication list for PRN reason. PICC Care - Routine: N/A - Orders Services needed: Registered Nurse, Physical Therapy, Occupational Therapy Isolation Type: None Diet Recommendation: no restrictions on diet Diet Texture: Regular Texture Diet, Thin Liquids, Meds Whole w/Liquids Additional: patient needs f/u with Dr De La Torre for survellance of his aneurysm. Also, needs f/u with his neursurgeon in regards to his back. - Follow Up Care Current Providers and Referrals: Gilberto Burrell MD [Primary Care Provider] - As per Instructions Jesse De La Torre DO [Doctor of Osteopathy] -
--- NOTE | 2017-08-15 15:04 | ASMTLACE ---
ANDRAE Length of stay for Answers: 14 days or more current admission Acuity / Level of Answers: Yes Care: Did the patient have an inpatient admission? Comorbidities - select Answers: Opioid dependence all that apply / Chronic pain # of Emergency department Answers: 1-2 visits in the last 6 months Social determinants Answers: History of substance abuse (ETOH, street drugs, prescription drugs, etc.) Mental health diagnosis (anxiety, depression, pers onality disorders, etc.) Lack of community resources and/or lack of social support (no pcp, lives alone, transportation, viji d) Score: 25 Date Signed: 08/15/2017 03:03 PM Electronically Signed By:Marjan Freitas LCSW
--- NOTE | 2017-08-15 15:09 | ASMTCMCOM ---
CM Note CM Note Notes: Today Pt. discharged to [facility] - placement found by guardian Angelica Robles and Director of Case Management Hemalatha Yuan. [facility] states they are not putting Pt. in a secure unit. Ronnie coordinated with contact there, Rima. Ronnie faxed d/c paperwork via a hard copy to [phone]. RN prepared Pt. who left without incident. RN gave report. [facility] picked Pt. up around 14:30. D/c to [facility] parts counterman care facility. Date Signed: 08/15/2017 03:09 PM Electronically Signed By:Marjan Freitas LCSW
--- NOTE | 2017-08-15 15:12 | ASDISCHSUM ---
Discharge Information Plan Status:SNF Medically Cleared to Leave: Discharge Date:08/15/2017 02:53 PM CM D/C Disposition:Half-Way Facility ADT D/C Disposition:Half-Way Facility Projected Discharge Date:08/09/2017 11:00 AM Transportation at D/C:ALS/BLS Discharge Delay Reason: Follow-Up Date:08/09/2017 11:00 AM Discharge Slot: Final Diagnosis:ETOH W/D, Renal Failure Placement Information Referral Type:*Senior Living/SNF Referral ID:[id number] [facility] Address 1:[address] [place] [address] Address 2: City:[place] Selection Factors: State:[place] Referral Type:*Senior Living/SNF Referral ID:[id number] Provider Name: Address 1: Phone Number: Address 2: Fax Number: City: Selection Factors: State: Patient Contact Information Contact Name:KIM Relationship: Address: Home Phone: Work Phone: City: Alternate Phone: [facility] Code: Email: Financial Information Financial Class:Medicare Primary Plan Desc:MEDICARE INPATIENT Primary Plan Number:[id number] Secondary Plan Desc: Secondary Plan Number: Assessment Information CAGE Questionnaire Date Signed: 07/24/2017 05:47 PM Electronically Signed By:Judit Centeno RN [facility] CM Progress Note CM Note CM Note Notes: Patient presents to ER per EMS after being found on the sidewalk outside his apartment, intoxicated. Patient is unable to answer questions. patient has a court appointed guardian "Star Ly"; Merrill Guillaume . Serena CHANG received HIPPA information from Angelica Robles, World Geography Teacher to whom I have spoken with . Per Angelica"s request: ER is to fax ER report, patient's current blood alcohol level, and any discharge instructions to her upon patient's discharge. . Patient may return to his apartment once he is medically cleared for discharge or discharge to the [facility] if appropriate. I have discussed situation with Serena CHANG and Dr. Hotron. Faxe cover completed for Serena to fax info to angelica as requested. Date Signed: 07/24/2017 05:59 PM Electronically Signed By:Judit Centeno RN [facility] Length of stay for Answers: 14 days or more current admission Acuity / Level of Answers: Yes Care: Did the patient have an inpatient admission? Comorbidities - select Answers: Opioid dependence all that apply / Chronic pain # of Emergency department Answers: 1-2 visits in the last 6 months Social determinants Answers: History of substance abuse (ETOH, street drugs, prescription drugs, etc.) Mental health diagnosis (anxiety, depression, pers onality disorders, etc.) Lack of community resources and/or lack of social support (no pcp, lives alone, transportation, viji d) Score: 25 Date Signed: 08/15/2017 03:03 PM Electronically Signed By:Marjan Freitas LCSW [facility] Initial CM Assessment Living Arrangements What is your living Answers: Alone arrangement? Who do you live with? Type Of Residence What kind of residence do Answers: Apartment you live in? Discharge Plan Comments Coordination Status Comments Notes: Patient is a 61yo male who is disabled and has a court appointed guardian ad abhinav. (see Judit's note) Patient was found down on the ground but awake outside his apartment building. Patient has a hx of alcoholism, depression, kidney stones, and chronic back pain. Patient was admitted for altered mental status, acute respiratory failure, obstructive sleep apnea and acute kidney injury. OT/WORKERS COMPENSATION EXAMINER have been ordered. Awaiting therapies evals. D/C needs TBD. CM will follow. Date Signed: 07/25/2017 04:44 PM Electronically Signed By:Linette Awan LCSW [facility] CM Progress Note CM Note CM Note Notes: Spoke to Angelica, patient's Hyperbaric Technician, who would like patient to go to a secured memory care unit. PT recommending SNF at this time. This CM will begin the referral and PASRR process. Date Signed: 07/28/2017 03:10 PM Electronically Signed By:Kacy Chen LCSW [facility] CM Progress Note CM Note CM Note Notes: PASRR sent to Coordinator. Referrals sent to 26 SNF's with Secured Units. Date Signed: 07/28/2017 04:56 PM Electronically Signed By:Kacy Chen LCSW [facility] Progress Note CM Note CM Note Notes: Patient's Nutritional Assistant, Catherine Bush, needed a letter for the courts. Dr. Barroso signed a letter. Catherine reports that the patient has a cat that he is concerned about. Right now the neighbor is caring for the cat. CM to follow up with SNF referrals listed. Date Signed: 07/29/2017 04:57 PM Electronically Signed By:Kacy Chen LCSW [facility] Progress Note CM Note CM Note Notes: Spoke with Valarie Slater, World Geography Teacher for patient through The [employer] ([phone]) program. She would like for us to email her the list of all the facilities turning the patient down ( since it is at 20 or so now) so we don't duplicate work. ([email or web address]). She will help with locating placement for the patient who is going to be difficult to place. [facility] called us back to say if patient does not have a diagnosis of dementia they cannot take him for their locked unit. They need to know if he has a formal diagnosis of dementia, if his guardian is temporary or permanent, who signs for payment. They might be able to consider him once these questions are answered. Lorrie, Power Switchboard Operator [phone] is the contact. Patient is being transferred to the floor. CM will need to follow up there. Date Signed: 07/30/2017 01:25 PM Electronically Signed By:Linette Awan LCSW [facility] Progress Note CM Note CM Note Notes: Today Ronnie worked with outpatient Filter Tip Inspector Angelica Robles to work on Pt's case and plan for discharge. Angelica states that test facility engineer and Care Navigators went to Court to petition for full guardianship today. Await decision. Recent paperwork declaring the Court order for placement of Pt. is in the hard chart. Pt. to be put on M1 Hold if tries to leave. steam service inspector agrees and is aware. Pt. did become agitated today and steam service inspector moved his bed closer to nurses station. Angelica also sent outpatient medical records to Ronnie today denoting Pt's hx. of alcohol related dementia. Fax-attached to [facility] and sent to [facility] who may have a bed soon per Angelica. Ronnie also contacted MD today because Pt. is not on all of his outpatient meds to include Abilify. Angelica warned that Pt. would grow increasingly agitated without the Abilify. Ronnie worked with MD and pharmacy to fix this situation. Pt. now on outpatient meds including Abilify. Completed PASRR from [facility] is in hard chart. SW to follow for d/c POC. Date Signed: 07/31/2017 05:21 PM Electronically Signed By:Marjan Freitas LCSW [facility] ISATU Progress Note CM Note CM Note Notes: Today Ronnie continued to work with Angelica Robles from [employer] on Pt's guardianship issues and discharge planning. Angelica informed [facility] that Court did indeed establish a temporary legal guardian for Pt. Angelica will serve in that capacity: Angelica Robles The Filter Tip Inspector [facility] [address], [place] [address] [email or web address] Cell is preferred: Work: Please see guardianship paperwork in the front of the hard chart. Paperwork also tubed to medical records. Today SWer also sent Angelica a list of nursing homes/SNFs where [facility] has already referred Pt. Angelica plans to call to f/u for placement. SWer sent updated outpatient note to all referred SNFs indicating alcoholic dementia diagnosis and also sent completed OBRA PASRR to all SNFs today via [facility]. [facility] may have a bed open on Friday. Angelica to follow. Pt's GAL (engraver) to visit Pt. today at [facility] - Mr. Merrill Guillaume . Notably Merrill is not the appointed Court guardian, Angelica is. Pt's behavior has been reportedly calm today per beside RN. CM to follow for d/c POC. Date Signed: 08/01/2017 03:14 PM Electronically Signed By:Marjan Freitas LCSW [facility] CM Progress Note CM Note CM Note Notes: ISATU missed a call from Valarie, The Filter Tip Inspector. ISATU called Valarie back and left her a msg. ISATU spoke w/ Angelica Robles. Angelica reports that she will have Valarie call the referrals that have been made. Angelica reports that during the time she has worked w/ Aiden she has not seen him be violent, aggressive or angry. Aiden has been agreeable to seek ETOH treatment. Angelica reports that pt had Abilify added and it may have helped his mood. Angelica would like pt to get into a [place]ated community to stop the ETOH and help w/ dementia. Angelica is advocating for pt to have back surgery. CM to follow. Plan: TBD Date Signed: 08/04/2017 12:43 PM Electronically Signed By:KIKA Walton [facility] CM Progress Note CM Note CM Note Notes: CM spoke w/ Crystal at [facility]. Most of the referrals sent have been denied. New referrals made. Please see below. [facility] [phone] [facility] [phone] [facility] [phone] [facility] [phone] [facility] [phone] [facility] [phone] [facility] [phone] [facility] [phone] [facility] [phone] [facility] [phone] [facility] [phone] [facility] [phone] [facility] [phone] [place] [phone] [facility] [phone] [facility] [phone] [facility] [phone] [place] [phone] [place] [phone] [facility] [phone] Date Signed: 08/04/2017 01:08 PM Electronically Signed By:KIKA Walton [facility] CM Progress Note CM Note CM Note Notes: Spoke with Angelica, patient's guardian to update and coordinate the search for placement today. [facility] and [facility] are the only possibilities right now. Contacted [facility] and Jammie states her worker Celia will come to the hospital to do an admission evaluation today. (Celia's # [phone]) Spoke with Valarie, Regulatory Affairs Analyst and gave her Celia's information so she can coordinate to be here at the same time. Left a message for Maki with [facility] to call me. CM will follow. Date Signed: 08/05/2017 12:14 PM Electronically Signed By:Linette Awan LCSW [facility] ISATU Progress Note CM Note ISATU Note Notes: Valarie from Regulatory Affairs Analyst left a message to say the asessment for today had been cancelled and will be tomorrow @ 10:30 AM. ISATU attempted to get back in touch with her and left a message. ISATU was informed late yesterday afternoon that [facility] was no longer interested. It is unclear if the assessment tomorrow is with [facility] or someone else. CM will follow. Date Signed: 08/06/2017 04:32 PM Electronically Signed By:Linette Awan LCSW [facility] ISATU Progress Note CM Note ISATU Note Notes: Valarie called back to confirm the assessment is with [facility] tomorrow at 10:30 AM. Angeliac, who is patient's guardian wants Valarie at the assessments, so Valarie will check in with CM and then attend the assessment. CM will follow. Date Signed: 08/06/2017 04:49 PM Electronically Signed By:Linette Awan LCSW [facility] CM Progress Note CM Note CM Note Notes: Today Valarie Slater from [employer] (she works with legal guardian Angelica Robles) came to [facility] to meet with Pt. and Rosy Liaison. Rosy denied Pt. to their facilities. Valarie [facility]. Pt. should be desirable for locked memory unit at this time due to having a guardian and weekly visits from The Filter Tip [employer] staff. Ronnie sent new Allscripts referals to memory care units/locked units today (see Allscripts). Sent referral information to Valarie via email. The [employer] staff to follow up with calls to SNFs for admission. CM to follow. Date Signed: 08/07/2017 03:00 PM Electronically Signed By:Marjan Freitas LCSW [facility] CM Progress Note CM Note CM Note Notes: Today Ronnie worked with [facility] [employer] staff, Edwin and Valarie on Pt's placement. Unfortunately, [facility] [employer] staff is coming a -end in finding a secure locked unit for Pt. After discussing case with CM Visual Display Manager, we decided to pursue regular rehab placement due to Pt. having no negative behaviors or attempts to leave. Made new Allscripts referrals to [facility] and [facility]. Left msg for Gokul at the [facility]. Karen Simba from [facility] to do on-site visit tomorrow, Friday, 08/09 to determine suitability for admission. Please note that guardian Angelica Robles must be invovled in all decisions about Pt's care to include his discharge placement - . We still may need to address possible Court order to place Pt. in a secure unit only. CM to follow for d/c POC. Date Signed: 08/08/2017 05:43 PM Electronically Signed By:Marjan Freitas LCSW [facility] CM Progress Note CM Note CM Note Notes: Karen was here to evaluate pt, he has been accepted but per Jennifer Robles (legal guardian [phone]) pt has a court order that states pt must be in a secure unit. ISATU w/f, Hemalatha Yuan notified. DC Plan: SNF Date Signed: 08/09/2017 02:04 PM Electronically Signed By:Abena Garner RN [facility] CM Progress Note CM Note CM Note Notes: Edwin Collier, assistant professor of history to eJnnifer of The Regulatory Affairs Analyst, called and requested we send patient's information to [facility]. They are saying patient has to have a locked unti per the court papers. [facility] has accepted patient but does not have a locked unit. Informed Edwin we had already sent a referral to [facility] on 07/28/17. Mary is saying she did not get the referral and wants it to be hand faxed because their Allscripts does not work well. Resent the referral by fax machine vs Allscripts. ISATU will follow. Date Signed: 08/11/2017 10:02 AM Electronically Signed By:Linette Awan LCSW [facility] ISATU Progress Note ISATU Note ISATU Note Notes: Spoke with Karen from [facility] regarding patient. She visited with patient today and thinks he will do fine in their facility. He has to agree to wear a wander device that will lock outside doors as he gets close to them. Karen states if she doesn't get a decision today she will have to give the last male bed to someone else. I informed Edwin of this and he had the engraver call me. Explained this to the engraver (Merrill Guillaume) who states he is going to try to connect with Jennifer who is in court today. He was able to talk to Jennifer and they called Karen at [facility]. They have approved him going to [facility] and Karen set up transport for patient tomorrow 08-12-17 at 12:00 noon with [facility].ISATU informed patient, nurse, and dr. ISATU will follow. Date Signed: 08/11/2017 04:14 PM Electronically Signed By:Linette Awan LCSW Case Management Discharge Plan Note Case Management Discharge Discharge Order Complete? Answers: Yes Patient to Obtain Answers: Other Notes: [facility] Medications Transportation Arranged Answers: Other Notes: [facility] set up transport with [facility]. Transport will Pick (Date 08/12/2017 12:00 AM & Time) Faxed Final Orders Answers: Yes Notes: [facility] Agency/Facility Transfer Answers: Yes Notes: [facility] Report Printed & Faxed to Receiving Agency Discharge Comments Notes: Patient to be picked up today by [facility] transport and transferring to [facility]. Discharge summaries faxed to [facility] and The Regulatory Affairs Analyst ([facility]'s assistant professor of history Lawrence). Patient is ready to go. No further d/c needs. Date Signed: 08/12/2017 11:33 AM Electronically Signed By:Linette Awan LCSW [facility] CM Progress Note CM Note CM Note Notes: Discharge was cancelled by [facility] due to differences in expectations between them and The Regulatory Affairs Analyst group. CM to continue search for accepting facility for patient. CM will follow. Date Signed: 08/13/2017 08:55 AM Electronically Signed By:Linette Awan LCSW [facility] CM Progress Note CM Note CM Note Notes: Spoke with Angelica (guardian) today. Angelica would like to see Aiden in a locked unit because of his addiction to alcohol. She says 'he just can't help himself'. She and her team are going to be working to find placement for Aiden there are three potential 'yes' facilities: [facility], [facility], and [facility]. Angelica will call me with an update tomorrow. Date Signed: 08/13/2017 06:24 PM Electronically Signed By:Hemalatha Yuan RN [facility] CM Progress Note CM Note CM Note Notes: Today Edwin called from the Filter Tip Inspector. Stated a liaison from [facility] would be coming to assess Pt. for admission. Ms. Felicia Lucas , Diver'S Tender, came to do assessment. Felicia stated that Pt. was not appropriate for their particular secure unit due to his alcoholic dementia - they take mostly Alzheimers dementia and some Lewy Body dementia depending on behaviors. Felicia was open to assisting [facility] with other dementia placements, but Pt. not a good fit for them. Felicia communicated this over the phone to Valarie at the Filter Tip Inspector. SW/CM following case for d/c POC with The Filter Tip Inspector taking the lead for placement. Date Signed: 08/14/2017 05:29 PM Electronically Signed By:Marjan Freitas LCSW [facility] CM Progress Note CM Note CM Note Notes: Today Pt. discharged to [facility] - placement found by guardiirma Robles and Director of Case Management Hemalatha Yuan. [facility] states they are not putting Pt. in a secure unit. Ronnie coordinated with contact there, Rima. Ronnie faxed d/c paperwork via a hard copy to [phone]. RN prepared Pt. who left without incident. RN gave report. [facility] picked Pt. up around 14:30. D/c to [facility] term [facility]. Date Signed: 08/15/2017 03:09 PM Electronically Signed By:Marjan Freitas LCSW Intervention Information Intervention Type:*IM-Signed Date of Service:08/12/2017 10:27 AM Patient Type:Inpatient Staff Member:Abi Dubon Hours: Discipline: Severity: Comment:
== END 2017-08-15 14:53 | DRG 897 ==
LOC: EDUNIT# → F2N 20:31 → F3E 07-30 13:09
PROVIDERS: ADMIT Internal Medicine; ATTEND Internal Medicine
PROC: 0HQ1XZZ Repair Face Skin, External Approach (ICD-10-PCS; principal; 2017-07-24)
DX: F10.288 Alcohol dependence with other alcohol-induced disorder (principal); G31.2 Degeneration of nervous system due to alcohol; F10.229 Alcohol dependence with intoxication, unspecified; N17.9 Acute kidney failure, unspecified; E87.2 Acidosis; K70.10 Alcoholic hepatitis without ascites; S01.111A Laceration without foreign body of right eyelid and periocular area, initial encounter; W19.XXXA Unspecified fall, initial encounter; I71.2 Thoracic aortic aneurysm, without rupture; E88.2 Lipomatosis, not elsewhere classified; G47.33 Obstructive sleep apnea (adult) (pediatric); E83.51 Hypocalcemia; E87.6 Hypokalemia; F32.9 Major depressive disorder, single episode, unspecified; I10 Essential (primary) hypertension; Z87.442 Personal history of urinary calculi; Z98.1 Arthrodesis status
CPT/HCPCS: 80307; 82947-QW; 92507-GN; 92523-GN; 92526-GN; 92610-GN; 96374; 97110-GP; 97116-GP; 97162-GP; 97165-GO; 97530-GO; 97535-GO; G0008; G0009; G0480; G0515-GO; G8978-GP-CJ; G8978-GP-CK; G8979-GP-CI; G8980-GP-CJ; G8987-GO-CK; G8987-GO-CL; G8988-GO-CI; G8996-GN-CJ; G8997-GN-CH; G8998-GN-CH; G9168-GO-CI; G9169-GN-CI; G9170-GN-CI; J0610; J1630; J1644; J1650; J2060; J3411; J3475; J3480; Q9967